=== PATIENT | male | born 1955 | race African-American/Black ===

== ENCOUNTER 2018-11-30 13:20 | Inpatient (IN) ==
[2018-11-30] MEDS ORDERED: SODIUM CHLORIDE 0.9% 1,000 ML IV STA (13:32)
[2018-11-30] MEDS ORDERED: LORazepam 2 MG/1 ML VIAL IV STA ×2 (13:32→15:21)
[2018-11-30 14:07] LABS: Basophils % 0.3 % (0.0-0.8); Eosinophils % 0.1 % (0.00-10.9); Hematocrit 47.4 VOL% (42.0-52.0); Hemoglobin 14.8 GM/DL (14.0-18.0); Immature Granulocytes % 0.6 %; Immature Granulocytes Absolute 0.08 #; Lymphocytes # 1.3 10*3/uL (1.4-4.0); Lymphocytes % 9.8 % (21.2-54.2); Mean Corpuscular HGB Conc 31.2 GM/DL (32-36); Mean Corpuscular Volume 91.7 FL (87-102); Mean Platelet Volume 11.1 FL (9.6-12.0); Monocytes % 5.2 % (1.7-12.7); Platelet Count 270 T/CUMM (130-400); Red Blood Count 5.17 MC/CUMM (3.8-5.5); Red Cell Distribution Width 14.5 % (9.3-17.3); White Blood Count 13.7 T/CUMM (4-12)
[2018-11-30 14:22] LABS: INR 1.2; PT Patient Result 13.2 SECS
[2018-11-30 14:23] LABS: Amorphous Crystals,Urine Occasional /HPF (Few); Apearance,Urine Slightly Hazy (Clear); Bacteria,Urine Occasional /HPF (Few); Bilirubin,Urine Negative (Negative); Blood, Urine Moderate mg/dL (Negative); Glucose,Urine (UA) Negative (Negative); Hyaline Casts,Urine 70 /LPF (0-3); Ketones,Urine Negative (Negative); Mucus,Urine Occasional /LPF (Occasional); Nitrite,Urine Negative (Negative); Protein,Urine >=500 MG/DL; RBC,Urine 6 /HPF (0-4); Squamous Epithelial Cell,Urine Occasional /HPF (0-10); Urine Color Yellow (Yellow); Urine Specific Gravity 1.012 (1.001-1.035); Urine Urobilinogen < 2.0 EU/DL (0.2-1.0); WBC,Urine 9 /HPF (0-6)
[2018-11-30 14:31] LABS: Alanine Aminotransferase 20 U/L (16-61); Albumin 3.4 G/DL (3.4-5.0); Alkaline Phosphatase 111 U/L (45-117); Aspartate Amino Transferase 22 U/L (0-37); Blood Urea Nitrogen 13 MG/DL (7-18); Calcium 8.9 MG/DL (8.5-10.1); Glucose 108 MG/DL (74-106); Osmolality,Calculated 283.1 MOS/KG (273-304); Total Protein 7.1 G/DL (6.4-8.3)
[2018-11-30 14:32] LABS: Troponin I 0.339 NG/ML (0.00-0.045)
[2018-11-30 14:33] LABS: Barbiturates Screen,Urine Negative (Negative); Benzodiazepines Screen,Urine Negative (Negative); Cannabinoid Screen,Urine Negative (Negative); Opiate Screen,Urine Negative (Negative); Phencyclidine Screen,Urine Negative (Negative)
[2018-11-30] MEDS ORDERED: MAGNESIUM SULF RIDER 2 GM in PREMIX 1 EACH IV STA (14:36)
[2018-11-30] MEDS ORDERED: DILTIAZEM 50 MG/10 ML VIAL IV STA (14:37)
[2018-11-30] MEDS ORDERED: FUROSEMIDE 40 MG/4 ML VIAL IV STA (14:37)
[2018-11-30] MEDS ORDERED: ONDANSETRON 4 MG/2 ML VIAL IV PRN (15:08)
[2018-11-30] MEDS ORDERED: ACETAMINOPHEN 325 MG TABLET PO PRN (15:08)
[2018-11-30] MEDS ORDERED: LORazepam 2 MG/1 ML VIAL IV PRN (15:36)
[2018-11-30] MEDS ORDERED: POTASSIUM CHLORIDE RIDER 10 MEQ in PREMIX 1 EACH IV PRN (15:41)
[2018-11-30] MEDS ORDERED: levETIRAcetam 500 MG/5 ML VIAL IV ONE (15:49)
[2018-11-30 16:54] LABS: Allen Test Positive
[2018-11-30] MEDS: THIAMINE INJ 100 MG, FOLIC ACID INJ 1 MG, MULTIVITAMIN INJ 10 ML in DEXTROSE 5% NACL 0.... IV SCH (16:55)
[2018-11-30] MEDS: DEXT 5% NACL 0.45% KCL 40 MEQ 40 MEQ/1,000 ML BAG IV SCH ×2 (16:55→23:52)
[2018-11-30 16:58] LABS: ABG Base Excess -1.5 MMOL/L (-2.5-2.5); ABG HCO3 23.2 MMOL/L (20-26); ABG Oxygen Saturation 98.9 % (95-100); ABG PCO2 31.9 MM HG (35-48); ABG PH 7.439 (7.35-7.45); ABG TCO2 18.1 MMOL/L (23-27)
[2018-11-30] MEDS: ENOXAPARIN 100 MG/ML SYRINGE SUBCUT SCH (17:28)
[2018-11-30] MEDS: dilTIAZem Drip 125 MG/125 ML PREMIX IV SCH (18:23)
[2018-11-30] MEDS ORDERED: cloNIDine 0.2 MG/24 HR PATCH TRANSDERM SCH (20:00)
[2018-11-30] MEDS ORDERED: hydrALAZINE 20 MG/1 ML VIAL IV ONE (22:18)
[2018-12-01 05:00] LABS: Basophils % 0.1 % (0.0-0.8); Hematocrit 44.1 VOL% (42.0-52.0); Hemoglobin 14.6 GM/DL (14.0-18.0); Immature Granulocytes % 0.6 %; Lymphocytes % 5.5 % (21.2-54.2); Mean Corpuscular HGB Conc 33.1 GM/DL (32-36); Mean Platelet Volume 11.7 FL (9.6-12.0); Monocytes % 7.9 % (1.7-12.7); Neutrophils % 85.9 % (38.7-73.9); Platelet Count 289 T/CUMM (130-400); Red Blood Count 5.13 MC/CUMM (3.8-5.5); Red Cell Distribution Width 14.2 % (9.3-17.3); White Blood Count 17.3 T/CUMM (4-12)
[2018-12-01 05:29] LABS: Albumin 3.5 G/DL (3.4-5.0); Bilirubin,Total 1.6 MG/DL (0.2-1.0); Calcium 8.6 MG/DL (8.5-10.1); Osmolality,Calculated 276.7 MOS/KG (273-304); Total Protein 7.1 G/DL (6.4-8.3)
[2018-12-01] MEDS: ENOXAPARIN 100 MG/ML SYRINGE SUBCUT SCH ×2 (05:41→16:16)
[2018-12-01] MEDS: dilTIAZem Drip 125 MG/125 ML PREMIX IV SCH ×2 (05:43→16:15)
[2018-12-01] MEDS: DEXT 5% NACL 0.45% KCL 40 MEQ 40 MEQ/1,000 ML BAG IV SCH ×2 (05:53→20:00)
[2018-12-01] MEDS ORDERED: POTASSIUM CHLORIDE INJ 50 MEQ in SODIUM CHLORIDE 0.9% 500 ML IV ONE (06:00)
[2018-12-01] MEDS ORDERED: MAGNESIUM SULF RIDER 2 GM in PREMIX 1 EACH IV ONE (08:28)
[2018-12-01] MEDS: ATORVASTATIN 20 MG TABLET PO SCH (09:04)
[2018-12-01] MEDS: CEFTAROLINE 600 MG in SODIUM CHLORIDE 0.9% 100 ML IV SCH (12:50)
[2018-12-01] MEDS ORDERED: METOPROLOL TARTRATE 5 MG/5 ML VIAL IV ONE (12:58)
[2018-12-01] MEDS: CARVEDILOL 12.5 MG TABLET PO SCH ×2 (12:59→17:57)
[2018-12-01] MEDS ORDERED: VECURONIUM 10 MG VIAL IV ONE ×2 (13:43→13:44)
[2018-12-01] MEDS ORDERED: PROPOFOL 1,000 MG/100 ML BOTTLE IV ONE (13:43)
[2018-12-01] MEDS: PROPOFOL 1,000 MG/100 ML BOTTLE IV SCH ×2 (14:19→22:02)
[2018-12-01] MEDS ORDERED: LABETALOL 20 MG/4 ML SYRINGE IV PRN (14:25)
[2018-12-01 14:46] LABS: ABG Base Excess 0.7 MMOL/L (-2.5-2.5); ABG HCO3 24.9 MMOL/L (20-26); ABG Oxygen Saturation 94.6 % (95-100); ABG PCO2 35.8 MM HG (35-48); ABG PO2 75.6 MM HG (80-95); ABG TCO2 20.7 MMOL/L (23-27)
[2018-12-01] MEDS: THIAMINE INJ 100 MG, FOLIC ACID INJ 1 MG, MULTIVITAMIN INJ 10 ML in DEXTROSE 5% NACL 0.... IV SCH (16:25)
[2018-12-01] MEDS: LORazepam 2 MG/1 ML VIAL IV SCH (17:41)
[2018-12-02] MEDS: CEFTAROLINE 600 MG in SODIUM CHLORIDE 0.9% 100 ML IV SCH ×2 (00:09→11:41)
[2018-12-02] MEDS: CARVEDILOL 12.5 MG TABLET PO SCH ×3 (00:11→12:02)
[2018-12-02] MEDS: DEXT 5% NACL 0.45% KCL 40 MEQ 40 MEQ/1,000 ML BAG IV SCH ×2 (01:20→01:39)
[2018-12-02] MEDS: LORazepam 2 MG/1 ML VIAL IV SCH ×3 (01:37→17:25)
[2018-12-02 04:15] LABS: ABG Base Excess -2.5 MMOL/L (-2.5-2.5); ABG HCO3 22.4 MMOL/L (20-26); ABG Oxygen Saturation 98.4 % (95-100); ABG PH 7.432 (7.35-7.45); ABG TCO2 17.7 MMOL/L (23-27); Allen Test Positive; Pt O2 Delivery Device Ventilator
[2018-12-02] MEDS: ENOXAPARIN 100 MG/ML SYRINGE SUBCUT SCH ×2 (05:54→15:41)
[2018-12-02] MEDS: PROPOFOL 1,000 MG/100 ML BOTTLE IV SCH ×2 (06:07→17:17)
[2018-12-02] MEDS ORDERED: DIGOXIN 0.5 MG/2 ML AMP IV ONE ×2 (07:22→10:30)
[2018-12-02] MEDS: DEXTROSE 5% LACTATED RINGERS 1,000 ML IV SCH (08:24)
[2018-12-02] MEDS ORDERED: DEXTROSE 50% 25 GM/50 ML SYRINGE IV PRN (08:51)
[2018-12-02] MEDS ORDERED: GLUCAGON 1 MG VIAL IM PRN (08:51)
[2018-12-02] MEDS: ATORVASTATIN 20 MG TABLET PO SCH (09:36)
[2018-12-02] MEDS: INSULIN REGULAR 100 UNIT/ML SUBCUT SCH ×2 (11:57→18:32)
[2018-12-02] MEDS ORDERED: CARVEDILOL 25 MG TABLET PER TUBE SCH (14:00)
[2018-12-02] MEDS: THIAMINE INJ 100 MG, FOLIC ACID INJ 1 MG, MULTIVITAMIN INJ 10 ML in DEXTROSE 5% NACL 0.... IV SCH (17:28)
[2018-12-02] MEDS: CARVEDILOL 25 MG TABLET PER TUBE SCH (18:19)
[2018-12-03] MEDS: CEFTAROLINE 600 MG in SODIUM CHLORIDE 0.9% 100 ML IV SCH (00:13)
[2018-12-03] MEDS: INSULIN REGULAR 100 UNIT/ML SUBCUT SCH ×4 (00:50→18:13)
[2018-12-03] MEDS: LORazepam 2 MG/1 ML VIAL IV SCH ×3 (01:18→17:56)
[2018-12-03] MEDS: CARVEDILOL 25 MG TABLET PER TUBE SCH ×4 (01:20→18:18)
[2018-12-03 03:56] LABS: ABG Base Excess -2.7 MMOL/L (-2.5-2.5); ABG HCO3 20.8 MMOL/L (20-26); ABG Oxygen Saturation 97.5 % (95-100); ABG PCO2 32.4 MM HG (35-48); ABG PH 7.425 (7.35-7.45); ABG PO2 99.6 MM HG (80-95); ABG TCO2 21.8 MMOL/L (23-27); Allen Test Positive; Pt O2 Delivery Device Ventilator
[2018-12-03] MEDS: DEXTROSE 5% LACTATED RINGERS 1,000 ML IV SCH ×2 (04:20→13:25)
[2018-12-03 05:25] LABS: Basophils # 0.1 10*3/uL (0.0-0.2); Basophils % 0.2 % (0.0-0.8); Hematocrit 42.9 VOL% (42.0-52.0); Hemoglobin 13.5 GM/DL (14.0-18.0); Immature Granulocytes % 1.9 %; Immature Granulocytes Absolute 0.52 #; Lymphocytes # 1.4 10*3/uL (1.4-4.0); Mean Corpuscular HGB Conc 31.5 GM/DL (32-36); Mean Corpuscular Volume 89.4 FL (87-102); Monocytes % 8.6 % (1.7-12.7); Neutrophils % 84.3 % (38.7-73.9); Platelet Count 225 T/CUMM (130-400); Red Cell Distribution Width 14.3 % (9.3-17.3); White Blood Count 26.8 T/CUMM (4-12)
[2018-12-03] MEDS: ENOXAPARIN 100 MG/ML SYRINGE SUBCUT SCH ×2 (05:44→16:10)
[2018-12-03 05:57] LABS: Calcium 8.5 MG/DL (8.5-10.1); Prealbumin 10.9 MG/DL (20-40)
[2018-12-03 05:59] LABS: Risk Ratio 1.38
[2018-12-03 06:03] LABS: Albumin 2.1 G/DL (3.4-5.0); Calcium 8.4 MG/DL (8.5-10.1); Osmolality,Calculated 276.8 MOS/KG (273-304); Total Protein 5.6 G/DL (6.4-8.3)
[2018-12-03 06:04] LABS: Troponin I 0.151 NG/ML (0.00-0.045)
[2018-12-03 06:21] LABS: Band Neutrophils 1 % (0-10); Burr Cells Slight; Hypochromasia 1+; Lymphocytes 11 % (20-55); Ovalocytes Slight; Platelet Estimate Adequate; Segmented Neutrophils 82 % (50-85); Total Cells Counted 100
[2018-12-03] MEDS: PROPOFOL 1,000 MG/100 ML BOTTLE IV SCH (07:24)
[2018-12-03] MEDS ORDERED: LORazepam 2 MG/1 ML VIAL ONE (09:28)
[2018-12-03] MEDS: ATORVASTATIN 20 MG TABLET PO SCH (09:35)
[2018-12-03] MEDS: CEFTAROLINE 400 MG in SODIUM CHLORIDE 0.9% 100 ML IV SCH (11:06)
[2018-12-03] MEDS: DIGOXIN 0.25 MG TABLET PER TUBE SCH (13:26)
[2018-12-03] MEDS: THIAMINE INJ 100 MG, FOLIC ACID INJ 1 MG, MULTIVITAMIN INJ 10 ML in DEXTROSE 5% NACL 0.... IV SCH (17:45)
[2018-12-04] MEDS: CEFTAROLINE 400 MG in SODIUM CHLORIDE 0.9% 100 ML IV SCH ×3 (01:20→23:58)
[2018-12-04] MEDS: INSULIN REGULAR 100 UNIT/ML SUBCUT SCH ×4 (01:20→20:30)
[2018-12-04] MEDS: CARVEDILOL 25 MG TABLET PER TUBE SCH ×4 (01:31→17:50)
[2018-12-04] MEDS: LORazepam 2 MG/1 ML VIAL IV SCH ×3 (03:02→17:50)
[2018-12-04 03:17] LABS: ABG Base Excess -3.1 MMOL/L (-2.5-2.5); ABG HCO3 20.5 MMOL/L (20-26); ABG Oxygen Saturation 97.9 % (95-100); ABG PCO2 32.7 MM HG (35-48); ABG PH 7.416 (7.35-7.45); ABG PO2 110.7 MM HG (80-95); ABG TCO2 21.5 MMOL/L (23-27); Allen Test Positive; Pt O2 Delivery Device Ventilator
[2018-12-04] MEDS: PROPOFOL 1,000 MG/100 ML BOTTLE IV SCH ×2 (04:55→17:05)
[2018-12-04] MEDS: DEXTROSE 5% LACTATED RINGERS 1,000 ML IV SCH ×3 (05:12→20:36)
[2018-12-04] MEDS: ENOXAPARIN 100 MG/ML SYRINGE SUBCUT SCH ×2 (05:12→16:22)
[2018-12-04 05:22] LABS: Basophils # 0.1 10*3/uL (0.0-0.2); Basophils % 0.2 % (0.0-0.8); Hematocrit 43.2 VOL% (42.0-52.0); Hemoglobin 13.6 GM/DL (14.0-18.0); Immature Granulocytes % 0.9 %; Lymphocytes % 4.2 % (21.2-54.2); Mean Corpuscular HGB Conc 31.5 GM/DL (32-36); Mean Corpuscular Volume 89.3 FL (87-102); Mean Platelet Volume 10.9 FL (9.6-12.0); Monocytes % 9.8 % (1.7-12.7); Neutrophils % 84.9 % (38.7-73.9); Platelet Count 225 T/CUMM (130-400); Red Blood Count 4.84 MC/CUMM (3.8-5.5); Red Cell Distribution Width 14.3 % (9.3-17.3); White Blood Count 22.5 T/CUMM (4-12)
[2018-12-04 05:55] LABS: Bilirubin,Total 1.8 MG/DL (0.2-1.0); Calcium 8.6 MG/DL (8.5-10.1); Total Protein 5.8 G/DL (6.4-8.3)
[2018-12-04 06:20] LABS: Hypochromasia Slight; Lymphocytes 6 % (20-55); Ovalocytes Slight; Platelet Estimate Adequate; Segmented Neutrophils 88 % (50-85); Total Cells Counted 100
[2018-12-04 06:21] LABS: Burr Cells Slight
[2018-12-04] MEDS ORDERED: LACTULOSE 20 GM/30 ML UDCUP PER TUBE SCH (09:00)
[2018-12-04] MEDS: ATORVASTATIN 20 MG TABLET PO SCH (09:32)
[2018-12-04] MEDS: DIGOXIN 0.25 MG TABLET PER TUBE SCH (14:41)
[2018-12-04] MEDS: THIAMINE INJ 100 MG, FOLIC ACID INJ 1 MG, MULTIVITAMIN INJ 10 ML in DEXTROSE 5% NACL 0.... IV SCH (16:22)
[2018-12-04] MEDS ORDERED: VALPROIC ACID INJ 1,000 MG in SODIUM CHLORIDE 0.9% 100 ML IV ONE (18:00)
[2018-12-05] MEDS: CARVEDILOL 25 MG TABLET PER TUBE SCH ×4 (00:01→18:13)
[2018-12-05] MEDS: INSULIN REGULAR 100 UNIT/ML SUBCUT SCH ×4 (00:14→17:37)
[2018-12-05] MEDS ORDERED: LORazepam 2 MG/1 ML VIAL ONE (00:54)
[2018-12-05] MEDS: LORazepam 2 MG/1 ML VIAL IV SCH ×3 (00:59→18:13)
[2018-12-05] MEDS: VALPROIC ACID INJ 500 MG in SODIUM CHLORIDE 0.9% 100 ML IV SCH ×3 (02:37→18:14)
[2018-12-05 04:28] LABS: ABG Base Excess -3.1 MMOL/L (-2.5-2.5); ABG HCO3 21.9 MMOL/L (20-26); ABG Oxygen Saturation 98.3 % (95-100); ABG PCO2 36.3 MM HG (35-48); ABG TCO2 18.7 MMOL/L (23-27); Allen Test Positive; Pt O2 Delivery Device Ventilator
[2018-12-05] MEDS: ENOXAPARIN 100 MG/ML SYRINGE SUBCUT SCH ×2 (04:48→15:56)
[2018-12-05 04:55] LABS: Basophils # 0.1 10*3/uL (0.0-0.2); Basophils % 0.3 % (0.0-0.8); Hematocrit 41.1 VOL% (42.0-52.0); Hemoglobin 12.8 GM/DL (14.0-18.0); Immature Granulocytes % 0.8 %; Lymphocytes # 1.1 10*3/uL (1.4-4.0); Lymphocytes % 4.8 % (21.2-54.2); Mean Corpuscular HGB Conc 31.1 GM/DL (32-36); Mean Corpuscular Volume 89.3 FL (87-102); Mean Platelet Volume 11.3 FL (9.6-12.0); Monocytes % 10.8 % (1.7-12.7); NRBC # 0.02 10*3/uL; Neutrophils % 83.3 % (38.7-73.9); Platelet Count 227 T/CUMM (130-400); Red Cell Distribution Width 14.3 % (9.3-17.3); White Blood Count 23.7 T/CUMM (4-12)
[2018-12-05 05:25] LABS: Calcium 8.6 MG/DL (8.5-10.1); Osmolality,Calculated 283.7 MOS/KG (273-304)
[2018-12-05 05:29] LABS: Albumin 1.8 G/DL (3.4-5.0); Bilirubin,Total 1.3 MG/DL (0.2-1.0); Calcium 8.3 MG/DL (8.5-10.1); Osmolality,Calculated 281.8 MOS/KG (273-304); Prealbumin 6.3 MG/DL (20-40); Total Protein 5.8 G/DL (6.4-8.3)
[2018-12-05 05:50] LABS: Lymphocytes 6 % (20-55); Segmented Neutrophils 85 % (50-85); Total Cells Counted 100
[2018-12-05 05:51] LABS: Anisocytosis Slight; Microcytosis 1+
[2018-12-05 05:52] LABS: Platelet Estimate Normal
[2018-12-05] MEDS: DEXTROSE 5% LACTATED RINGERS 1,000 ML IV SCH ×2 (06:39→16:29)
[2018-12-05] MEDS ORDERED: ASPIRIN 300 MG SUPP RECTAL SCH (09:00)
[2018-12-05] MEDS: ASPIRIN CHEW 81 MG TABLET PO SCH (09:25)
[2018-12-05] MEDS: ATORVASTATIN 20 MG TABLET PO SCH (09:25)
[2018-12-05] MEDS: CEFTAROLINE 400 MG in SODIUM CHLORIDE 0.9% 100 ML IV SCH ×2 (11:32→22:28)
[2018-12-05] MEDS: DIGOXIN 0.25 MG TABLET PER TUBE SCH (13:35)
[2018-12-05] MEDS: ALBUTEROL/IPRATROPIUM 3 ML NEB RESP TX SCH ×2 (14:00→19:10)
[2018-12-05] MEDS: dilTIAZem Drip 125 MG/125 ML PREMIX IV SCH (15:55)
[2018-12-05] MEDS: PROPOFOL 1,000 MG/100 ML BOTTLE IV SCH (16:24)
[2018-12-05] MEDS: THIAMINE INJ 100 MG, FOLIC ACID INJ 1 MG, MULTIVITAMIN INJ 10 ML in DEXTROSE 5% NACL 0.... IV SCH (16:27)
[2018-12-06] MEDS: INSULIN REGULAR 100 UNIT/ML SUBCUT SCH ×3 (00:22→11:06)
[2018-12-06] MEDS: CARVEDILOL 25 MG TABLET PER TUBE SCH ×2 (00:29→06:15)
[2018-12-06] MEDS: ALBUTEROL/IPRATROPIUM 3 ML NEB RESP TX SCH ×3 (01:35→13:00)
[2018-12-06] MEDS: LORazepam 2 MG/1 ML VIAL IV SCH ×2 (01:43→08:45)
[2018-12-06] MEDS: VALPROIC ACID INJ 500 MG in SODIUM CHLORIDE 0.9% 100 ML IV SCH ×2 (01:45→10:45)
[2018-12-06] MEDS: DEXTROSE 5% LACTATED RINGERS 1,000 ML IV SCH ×2 (02:51→11:00)
[2018-12-06] MEDS: ENOXAPARIN 100 MG/ML SYRINGE SUBCUT SCH (03:17)
[2018-12-06 04:31] LABS: ABG Base Excess -3.3 MMOL/L (-2.5-2.5); ABG HCO3 21.6 MMOL/L (20-26); ABG Oxygen Saturation 97.5 % (95-100); ABG PCO2 47.5 MM HG (35-48); ABG PH 7.301 (7.35-7.45); ABG TCO2 20.9 MMOL/L (23-27); Allen Test Positive; Pt O2 Delivery Device Venturi Mask
[2018-12-06 05:24] LABS: Basophils # 0.1 10*3/uL (0.0-0.2); Basophils % 0.3 % (0.0-0.8); Hematocrit 39.7 VOL% (42.0-52.0); Hemoglobin 12.3 GM/DL (14.0-18.0); Immature Granulocytes % 1.1 %; Immature Granulocytes Absolute 0.23 #; Lymphocytes % 4.7 % (21.2-54.2); Mean Corpuscular Volume 91.5 FL (87-102); Mean Platelet Volume 11.7 FL (9.6-12.0); Monocytes % 12.1 % (1.7-12.7); Neutrophils % 81.8 % (38.7-73.9); Platelet Count 213 T/CUMM (130-400); Red Blood Count 4.34 MC/CUMM (3.8-5.5); Red Cell Distribution Width 14.5 % (9.3-17.3); White Blood Count 21.6 T/CUMM (4-12)
[2018-12-06 05:42] LABS: Albumin 1.7 G/DL (3.4-5.0); Bilirubin,Total 0.6 MG/DL (0.2-1.0); Calcium 8.5 MG/DL (8.5-10.1); Osmolality,Calculated 282.7 MOS/KG (273-304); Total Protein 5.9 G/DL (6.4-8.3)
[2018-12-06 05:58] LABS: Lymphocytes 5 % (20-55); Platelet Estimate Adequate; Polychromasia Slight; Segmented Neutrophils 85 % (50-85); Total Cells Counted 100
[2018-12-06] MEDS ORDERED: LORazepam 2 MG/1 ML VIAL ONE (08:38)
[2018-12-06] MEDS: ATORVASTATIN 20 MG TABLET PO SCH (08:45)
[2018-12-06] MEDS: ASPIRIN CHEW 81 MG TABLET PO SCH (08:45)
[2018-12-06] MEDS ORDERED: DILTIAZEM 60 MG TABLET PO SCH (11:00)
[2018-12-06] MEDS: CEFTAROLINE 400 MG in SODIUM CHLORIDE 0.9% 100 ML IV SCH (11:15)
[2018-12-06] MEDS: DIGOXIN 0.25 MG TABLET PER TUBE SCH (12:20)
[2018-12-06 14:20] VITALS: BP 119/80
[2018-12-06] MEDS ORDERED: DILTIAZEM 30 MG TABLET PO SCH (17:00)
[2018-12-06] MEDS ORDERED: CARVEDILOL 25 MG TABLET PO SCH (21:00)
[2018-12-06] MEDS ORDERED: CEFTAROLINE 400 MG in SODIUM CHLORIDE 0.9% 100 ML IV SCH (23:00)
== END 2018-12-06 14:35 | DRG 208 ==
LOC: N.ED 13:20 → N.EDINP 15:09 → SUATTDRO 15:09 → N.ICU 19:35
PROVIDERS: ADMIT Hospitalist; ATTEND Internal Medicine

== ENCOUNTER 2019-02-12 12:12 | Inpatient (IN) ==
[2019-02-12 12:45] LABS: Basophils # 0.1 10*3/uL (0.0-0.2); Basophils % 0.4 % (0.0-0.8); Eosinophils % 0.2 % (0.00-10.9); Hematocrit 43.1 VOL% (42.0-52.0); Hemoglobin 13.8 GM/DL (14.0-18.0); Immature Granulocytes % 0.7 %; Immature Granulocytes Absolute 0.09 #; Lymphocytes # 2.6 10*3/uL (1.4-4.0); Lymphocytes % 18.6 % (21.2-54.2); Mean Corpuscular Volume 86.5 FL (87-102); Mean Platelet Volume 10.7 FL (9.6-12.0); Monocytes % 8.1 % (1.7-12.7); Platelet Count 323 T/CUMM (130-400); Red Blood Count 4.98 MC/CUMM (3.8-5.5); Red Cell Distribution Width 20.1 % (9.3-17.3); White Blood Count 13.8 T/CUMM (4-12)
[2019-02-12 13:05] LABS: Albumin 3.3 G/DL (3.4-5.0); Bilirubin,Total 0.9 MG/DL (0.2-1.0); Calcium 9.6 MG/DL (8.5-10.1); Osmolality,Calculated 268.1 MOS/KG (273-304); Total Protein 7.8 G/DL (6.4-8.3)
[2019-02-12 13:54] LABS: Apearance,Urine CLEAR (Clear); Bilirubin,Urine Negative (Negative); Blood, Urine Negative (Negative); Glucose,Urine (UA) Negative (Negative); Ketones,Urine 5 mg/dL (Negative); Nitrite,Urine Negative (Negative); Protein,Urine Negative; RBC,Urine 2 /HPF (0-4); Urine Color Yellow (Yellow); Urine Specific Gravity 1.017 (1.001-1.035); WBC,Urine <1 /HPF (0-6)
[2019-02-12] MEDS ORDERED: METOPROLOL TARTRATE 5 MG/5 ML VIAL IV STA (14:34)
[2019-02-12] MEDS ORDERED: ACETAMINOPHEN 325 MG TABLET PO PRN (15:37)
[2019-02-12] MEDS ORDERED: ONDANSETRON 4 MG/2 ML VIAL IV PRN (15:37)
[2019-02-12] MEDS ORDERED: FUROSEMIDE 20 MG/2 ML VIAL IV ONE (16:48)
[2019-02-12] MEDS ORDERED: MAGNESIUM SULF RIDER 2 GM in PREMIX 1 EACH IV ONE (16:48)
[2019-02-12] MEDS ORDERED: LACTULOSE 20 GM/30 ML UDCUP PO PRN (16:52)
[2019-02-12] MEDS: methylPREDNISolone SOD SUC 40 MG/1 ML VIAL IV SCH (17:33)
[2019-02-12] MEDS: SODIUM CHLORIDE 0.9% 1,000 ML IV SCH (17:34)
[2019-02-12] MEDS ORDERED: DOCUSATE SODIUM 100 MG CAPSULE PO SCH (21:00)
[2019-02-12] MEDS ORDERED: DILTIAZEM 90 MG TABLET PO SCH (22:00)
[2019-02-12] MEDS ORDERED: VALPROIC ACID 250 MG/5 ML UDCUP PO SCH (22:00)
[2019-02-12] MEDS: ATORVASTATIN 20 MG TABLET PO SCH (22:50)
[2019-02-12] MEDS: METOPROLOL TARTRATE 100 MG TABLET PO SCH (22:51)
[2019-02-12] MEDS: levETIRAcetam LIQUID 100 MG/ML 30 ML/BOTTLE PO SCH (22:52)
[2019-02-12] MEDS: DOCUSATE SODIUM 100 MG/10 ML UDCUP PO SCH (23:10)
[2019-02-13] MEDS: methylPREDNISolone SOD SUC 40 MG/1 ML VIAL IV SCH ×3 (02:17→17:06)
[2019-02-13 06:22] LABS: Basophils % 0.1 % (0.0-0.8); Hematocrit 41.4 VOL% (42.0-52.0); Hemoglobin 13.4 GM/DL (14.0-18.0); Immature Granulocytes % 0.6 %; Immature Granulocytes Absolute 0.05 #; Lymphocytes # 1.5 10*3/uL (1.4-4.0); Lymphocytes % 17.3 % (21.2-54.2); Mean Corpuscular HGB Conc 32.4 GM/DL (32-36); Mean Corpuscular Volume 85.5 FL (87-102); Mean Platelet Volume 10.9 FL (9.6-12.0); Monocytes % 1.8 % (1.7-12.7); Neutrophils % 80.2 % (38.7-73.9); Platelet Count 336 T/CUMM (130-400); Red Blood Count 4.84 MC/CUMM (3.8-5.5); Red Cell Distribution Width 19.9 % (9.3-17.3); White Blood Count 8.7 T/CUMM (4-12)
[2019-02-13 06:55] LABS: Calcium 9.8 MG/DL (8.5-10.1); Osmolality,Calculated 271.2 MOS/KG (273-304); Thyroid Stimulating Hormone 1.44 uIU/ml (0.358-3.74); Uric Acid 6.6 MG/DL (3.5-7.2)
[2019-02-13] MEDS ORDERED: FUROSEMIDE 20 MG/2 ML VIAL IV SCH (09:00)
[2019-02-13] MEDS ORDERED: AMINO ACIDS PROTEIN HYDROLYS PO SCH (09:00)
[2019-02-13] MEDS: FUROSEMIDE 40 MG/4 ML VIAL IV SCH (10:26)
[2019-02-13] MEDS: ASPIRIN EC 81 MG TABLET PO SCH (10:28)
[2019-02-13] MEDS: FOLIC ACID 1 MG TABLET PO SCH (10:28)
[2019-02-13] MEDS: VALPROIC ACID 250 MG/5 ML UDCUP PO SCH ×3 (10:28→21:24)
[2019-02-13] MEDS: THIAMINE 100 MG TABLET PO SCH (10:29)
[2019-02-13] MEDS: METOPROLOL TARTRATE 100 MG TABLET PO SCH ×2 (10:29→21:23)
[2019-02-13] MEDS: DILTIAZEM 90 MG TABLET PO SCH ×3 (10:30→21:24)
[2019-02-13] MEDS: PANTOPRAZOLE 40 MG TABLET PO SCH (10:31)
[2019-02-13] MEDS: levETIRAcetam LIQUID 100 MG/ML 30 ML/BOTTLE PO SCH ×2 (10:34→21:35)
[2019-02-13] MEDS: CLOPIDOGREL 75 MG TABLET PO SCH (10:34)
[2019-02-13] MEDS: SODIUM CHLORIDE 0.9% 1,000 ML IV SCH ×2 (10:38→16:34)
[2019-02-13] MEDS: DOCUSATE SODIUM 100 MG/10 ML UDCUP PO SCH ×2 (10:45→21:35)
[2019-02-13] MEDS: ALBUTEROL/IPRATROPIUM 3 ML NEB RESP TX SCH ×2 (13:40→19:10)
[2019-02-13] MEDS: ATORVASTATIN 20 MG TABLET PO SCH (21:36)
[2019-02-14] MEDS: ALBUTEROL/IPRATROPIUM 3 ML NEB RESP TX SCH ×3 (01:05→14:20)
[2019-02-14] MEDS: SODIUM CHLORIDE 0.9% 1,000 ML IV SCH (01:21)
[2019-02-14] MEDS: methylPREDNISolone SOD SUC 40 MG/1 ML VIAL IV SCH ×2 (02:26→09:46)
[2019-02-14 04:09] LABS: Basophils % 0.1 % (0.0-0.8); Hemoglobin 12.5 GM/DL (14.0-18.0); Immature Granulocytes % 0.9 %; Immature Granulocytes Absolute 0.15 #; Lymphocytes # 1.9 10*3/uL (1.4-4.0); Mean Corpuscular HGB Conc 32.9 GM/DL (32-36); Mean Corpuscular Volume 86.2 FL (87-102); Mean Platelet Volume 11.4 FL (9.6-12.0); Platelet Count 326 T/CUMM (130-400); Red Blood Count 4.41 MC/CUMM (3.8-5.5); Red Cell Distribution Width 19.5 % (9.3-17.3); White Blood Count 15.8 T/CUMM (4-12)
[2019-02-14 04:32] LABS: Calcium 9.2 MG/DL (8.5-10.1); Osmolality,Calculated 279.1 MOS/KG (273-304)
[2019-02-14] MEDS: FOLIC ACID 1 MG TABLET PO SCH (09:37)
[2019-02-14] MEDS: PANTOPRAZOLE 40 MG TABLET PO SCH (09:39)
[2019-02-14] MEDS: THIAMINE 100 MG TABLET PO SCH (09:39)
[2019-02-14] MEDS: CLOPIDOGREL 75 MG TABLET PO SCH (09:39)
[2019-02-14] MEDS: DILTIAZEM 90 MG TABLET PO SCH ×2 (09:40→16:06)
[2019-02-14] MEDS: DOCUSATE SODIUM 100 MG/10 ML UDCUP PO SCH (09:41)
[2019-02-14] MEDS: VALPROIC ACID 250 MG/5 ML UDCUP PO SCH ×2 (09:41→16:06)
[2019-02-14] MEDS: METOPROLOL TARTRATE 100 MG TABLET PO SCH (09:41)
[2019-02-14] MEDS: ASPIRIN EC 81 MG TABLET PO SCH (09:41)
[2019-02-14] MEDS: FUROSEMIDE 40 MG/4 ML VIAL IV SCH (09:42)
[2019-02-14] MEDS: levETIRAcetam LIQUID 100 MG/ML 30 ML/BOTTLE PO SCH (12:03)
[2019-02-14] MEDS ORDERED: LORazepam 2 MG/1 ML VIAL IV ONE ×2 (13:44)
[2019-02-14 16:50] VITALS: BP 148/96
== END 2019-02-14 18:34 | DRG 880 ==
LOC: EDUNIT# → EDBD → N.ED 12:12 → N.EDINP 14:22 → N.TELES 16:32
PROVIDERS: ADMIT Internal Medicine; ATTEND Internal Medicine

== ENCOUNTER 2019-05-07 18:37 | Inpatient (IN) ==
[2019-05-07 19:11] LABS: Basophils % 0.1 % (0.0-0.8); Eosinophils # 0.1 10*3/uL (0.0-0.87); Eosinophils % 0.3 % (0.00-10.9); Hematocrit 30.8 VOL% (42.0-52.0); Hemoglobin 9.9 GM/DL (14.0-18.0); Immature Granulocytes % 0.5 %; Immature Granulocytes Absolute 0.07 #; Lymphocytes # 2.9 10*3/uL (1.4-4.0); Lymphocytes % 19.7 % (21.2-54.2); Mean Corpuscular HGB Conc 32.1 GM/DL (32-36); Mean Corpuscular Volume 90.6 FL (87-102); Mean Platelet Volume 10.2 FL (9.6-12.0); Monocytes % 10.3 % (1.7-12.7); Neutrophils % 69.1 % (38.7-73.9); Platelet Count 339 T/CUMM (130-400); Red Cell Distribution Width 16.2 % (9.3-17.3); White Blood Count 14.9 T/CUMM (4-12)
[2019-05-07 19:30] LABS: Alanine Aminotransferase 10 U/L (16-61); Albumin 2.7 G/DL (3.4-5.0); Alkaline Phosphatase 37 U/L (45-117); Aspartate Amino Transferase < 3 U/L (0-37); Blood Urea Nitrogen 9 MG/DL (7-18); Calcium 8.7 MG/DL (8.5-10.1); Estimated Glom Filtration Rate 114 ML/MIN; Glucose 84 MG/DL (74-106)
[2019-05-07] MEDS ORDERED: ONDANSETRON 4 MG/2 ML VIAL IV PRN (20:42)
[2019-05-07] MEDS ORDERED: ACETAMINOPHEN 325 MG TABLET PO PRN (20:42)
[2019-05-07] MEDS ORDERED: LEVOFLOXACIN INJ 150 ML IV ONE (20:46)
[2019-05-07] MEDS ORDERED: LEVOFLOXACIN INJ 750 MG in PREMIX 1 EACH IV STA (20:46)
[2019-05-07] MEDS: methylPREDNISolone SOD SUC 125 MG/2 ML VIAL IV SCH (21:53)
[2019-05-07] MEDS: BENZONATATE 100 MG CAPSULE PO SCH (21:53)
[2019-05-07] MEDS: DOCUSATE SODIUM 100 MG CAPSULE PO SCH (21:53)
[2019-05-07] MEDS: SODIUM CHLORIDE 0.45% 1,000 ML IV SCH (21:57)
[2019-05-07] MEDS: ALBUTEROL/IPRATROPIUM 3 ML NEB RESP TX SCH (23:52)
[2019-05-08 01:04] LABS: Apearance,Urine CLEAR (Clear); Bilirubin,Urine Small mg/dL (Negative); Blood, Urine Negative (Negative); Glucose,Urine (UA) Negative (Negative); Hyaline Casts,Urine 1 /LPF (0-3); Ketones,Urine 5 mg/dL (Negative); Mucus,Urine Occasional /LPF (Occasional); Nitrite,Urine Negative (Negative); Protein,Urine 30 MG/DL; RBC,Urine 4 /HPF (0-4); Urine Color Amber (Yellow); Urine Specific Gravity 1.033 (1.001-1.035); WBC,Urine 4 /HPF (0-6)
[2019-05-08] MEDS: ALBUTEROL/IPRATROPIUM 3 ML NEB RESP TX SCH ×4 (03:24→14:14)
[2019-05-08] MEDS: methylPREDNISolone SOD SUC 125 MG/2 ML VIAL IV SCH ×4 (06:22→22:19)
[2019-05-08] MEDS: SODIUM CHLORIDE 0.45% 1,000 ML IV SCH ×3 (06:23→14:55)
[2019-05-08] MEDS ORDERED: POTASSIUM CHLORIDE RIDER 10 MEQ in PREMIX 1 EACH IV PRN (07:08)
[2019-05-08] MEDS ORDERED: MAGNESIUM SULF RIDER 1 GM in PREMIX 1 EACH IV ONE (07:19)
[2019-05-08] MEDS: DOCUSATE SODIUM 100 MG CAPSULE PO SCH ×2 (10:24→22:20)
[2019-05-08] MEDS: PANTOPRAZOLE 40 MG TABLET PO SCH (10:24)
[2019-05-08] MEDS: BENZONATATE 100 MG CAPSULE PO SCH ×3 (10:25→22:16)
[2019-05-08 10:31] LABS: Calcium 9.1 MG/DL (8.5-10.1)
[2019-05-08] MEDS ORDERED: LACTULOSE 20 GM/30 ML UDCUP PO PRN (14:00)
[2019-05-08] MEDS ORDERED: IBUPROFEN 400 MG TABLET PO PRN (14:00)
[2019-05-08] MEDS ORDERED: ALBUTEROL/IPRATROPIUM 3 ML NEB RESP TX PRN (14:06)
[2019-05-08] MEDS: DILTIAZEM 90 MG TABLET PO SCH ×3 (15:07→22:22)
[2019-05-08] MEDS: HydrOXYzine PAMOATE 25 MG CAPSULE PO SCH ×2 (15:07→22:19)
[2019-05-08] MEDS: LORATADINE 10 MG TABLET PO SCH (15:07)
[2019-05-08] MEDS: MAGNESIUM SULF RIDER 2 GM in PREMIX 1 EACH IV ONE ×2 (16:59→18:25)
[2019-05-08] MEDS ORDERED: DOCUSATE SODIUM 100 MG/10 ML UDCUP PO SCH (21:00)
[2019-05-08] MEDS ORDERED: DILTIAZEM 60 MG TABLET PO SCH (22:01)
[2019-05-08] MEDS: METOPROLOL TARTRATE 100 MG TABLET PO SCH (22:16)
[2019-05-08] MEDS: ATORVASTATIN 20 MG TABLET PO SCH (22:16)
[2019-05-08] MEDS: ALLOPURINOL 100 MG TABLET PO SCH (22:17)
[2019-05-08] MEDS: levETIRAcetam LIQUID 100 MG/ML 30 ML/BOTTLE PO SCH (22:20)
[2019-05-08] MEDS: LEVOFLOXACIN INJ 750 MG in PREMIX 1 EACH IV SCH (22:21)
[2019-05-08] MEDS: VALPROIC ACID 250 MG/5 ML UDCUP PO SCH (22:21)
[2019-05-09] MEDS: ALBUTEROL/IPRATROPIUM 3 ML NEB RESP TX SCH ×5 (00:13→23:25)
[2019-05-09] MEDS: SODIUM CHLORIDE 0.45% 1,000 ML IV SCH ×3 (03:11→16:01)
[2019-05-09] MEDS: VALPROIC ACID 250 MG/5 ML UDCUP PO SCH ×3 (07:04→21:03)
[2019-05-09] MEDS: methylPREDNISolone SOD SUC 125 MG/2 ML VIAL IV SCH ×3 (07:04→22:03)
[2019-05-09] MEDS ORDERED: FOLIC ACID 1 MG TABLET PO SCH (09:00)
[2019-05-09] MEDS ORDERED: AMINO ACIDS PROTEIN HYDROLYS PO SCH (09:00)
[2019-05-09] MEDS: POTASSIUM CHLORIDE 20 MEQ/15 ML UDCUP PO SCH (10:44)
[2019-05-09] MEDS: DILTIAZEM 90 MG TABLET PO SCH ×3 (10:44→21:02)
[2019-05-09] MEDS: levETIRAcetam LIQUID 100 MG/ML 30 ML/BOTTLE PO SCH ×2 (10:44→21:01)
[2019-05-09] MEDS: PANTOPRAZOLE 40 MG TABLET PO SCH (10:45)
[2019-05-09] MEDS: ALLOPURINOL 100 MG TABLET PO SCH ×2 (10:45→21:02)
[2019-05-09] MEDS: METOPROLOL TARTRATE 100 MG TABLET PO SCH ×2 (10:45→21:03)
[2019-05-09] MEDS: CLOPIDOGREL 75 MG TABLET PO SCH (10:45)
[2019-05-09] MEDS: LORATADINE 10 MG TABLET PO SCH (10:45)
[2019-05-09] MEDS: HydrOXYzine PAMOATE 25 MG CAPSULE PO SCH ×3 (10:45→21:03)
[2019-05-09] MEDS: BENZONATATE 100 MG CAPSULE PO SCH ×3 (10:45→22:01)
[2019-05-09] MEDS: THIAMINE 100 MG TABLET PO SCH (10:45)
[2019-05-09] MEDS: ASPIRIN EC 81 MG TABLET PO SCH (10:45)
[2019-05-09] MEDS: MULTIVITAMIN LIQUID (CENTRUM) 60 ML BOTTLE PO SCH (10:46)
[2019-05-09] MEDS: DOCUSATE SODIUM 100 MG CAPSULE PO SCH ×2 (10:46→21:02)
[2019-05-09] MEDS: LEVOFLOXACIN INJ 750 MG in PREMIX 1 EACH IV SCH (21:01)
[2019-05-09] MEDS: ATORVASTATIN 20 MG TABLET PO SCH (21:02)
[2019-05-09] MEDS: AMITRIPTYLINE 10 MG TABLET PO SCH (21:03)
[2019-05-10] MEDS: SODIUM CHLORIDE 0.45% 1,000 ML IV SCH (01:46)
[2019-05-10] MEDS: VALPROIC ACID 250 MG/5 ML UDCUP PO SCH ×3 (05:15→21:22)
[2019-05-10] MEDS: methylPREDNISolone SOD SUC 125 MG/2 ML VIAL IV SCH ×3 (06:05→21:47)
[2019-05-10] MEDS: ALBUTEROL/IPRATROPIUM 3 ML NEB RESP TX SCH ×2 (07:27→15:46)
[2019-05-10 09:15] LABS: Basophils % 0.1 % (0.0-0.8); Hematocrit 32.4 VOL% (42.0-52.0); Hemoglobin 10.3 GM/DL (14.0-18.0); Immature Granulocytes % 0.6 %; Immature Granulocytes Absolute 0.12 #; Lymphocytes # 1.4 10*3/uL (1.4-4.0); Lymphocytes % 6.3 % (21.2-54.2); Mean Corpuscular HGB Conc 31.8 GM/DL (32-36); Mean Platelet Volume 10.5 FL (9.6-12.0); Monocytes % 2.9 % (1.7-12.7); Neutrophils % 90.1 % (38.7-73.9); Platelet Count 340 T/CUMM (130-400); Red Blood Count 3.56 MC/CUMM (3.8-5.5); White Blood Count 21.3 T/CUMM (4-12)
[2019-05-10 09:34] LABS: Burr Cells Slight; Hypochromasia Slight; Lymphocytes 10 % (20-55); Ovalocytes Slight; Platelet Estimate Adequate; Segmented Neutrophils 89 % (50-85); Total Cells Counted 100
[2019-05-10 09:44] LABS: Calcium 9.2 MG/DL (8.5-10.1)
[2019-05-10] MEDS: POTASSIUM CHLORIDE 20 MEQ/15 ML UDCUP PO SCH (09:55)
[2019-05-10] MEDS: BENZONATATE 100 MG CAPSULE PO SCH ×3 (09:56→21:22)
[2019-05-10] MEDS: DILTIAZEM 90 MG TABLET PO SCH ×3 (09:56→21:20)
[2019-05-10] MEDS: HydrOXYzine PAMOATE 25 MG CAPSULE PO SCH ×3 (09:56→21:21)
[2019-05-10] MEDS: LORATADINE 10 MG TABLET PO SCH (09:56)
[2019-05-10] MEDS: THIAMINE 100 MG TABLET PO SCH (09:57)
[2019-05-10] MEDS: CLOPIDOGREL 75 MG TABLET PO SCH (09:57)
[2019-05-10] MEDS: ASPIRIN EC 81 MG TABLET PO SCH (09:57)
[2019-05-10] MEDS: ALLOPURINOL 100 MG TABLET PO SCH ×2 (09:57→21:21)
[2019-05-10] MEDS: levETIRAcetam LIQUID 100 MG/ML 30 ML/BOTTLE PO SCH ×2 (09:57→21:22)
[2019-05-10] MEDS: METOPROLOL TARTRATE 100 MG TABLET PO SCH ×2 (09:57→21:22)
[2019-05-10] MEDS: PANTOPRAZOLE 40 MG TABLET PO SCH (09:57)
[2019-05-10] MEDS: DOCUSATE SODIUM 100 MG CAPSULE PO SCH ×2 (09:57→21:22)
[2019-05-10] MEDS: MULTIVITAMIN LIQUID (CENTRUM) 60 ML BOTTLE PO SCH (09:59)
[2019-05-10] MEDS: LEVOFLOXACIN INJ 750 MG in PREMIX 1 EACH IV SCH (21:18)
[2019-05-10] MEDS: ATORVASTATIN 20 MG TABLET PO SCH (21:20)
[2019-05-10] MEDS: AMITRIPTYLINE 10 MG TABLET PO SCH (21:22)
[2019-05-11] MEDS: ALBUTEROL/IPRATROPIUM 3 ML NEB RESP TX SCH ×4 (00:39→22:40)
[2019-05-11] MEDS: SODIUM CHLORIDE 0.45% 1,000 ML IV SCH (02:07)
[2019-05-11] MEDS ORDERED: MAGNESIUM SULF RIDER 2 GM in PREMIX 1 EACH IV ONE (02:32)
[2019-05-11] MEDS: VALPROIC ACID 250 MG/5 ML UDCUP PO SCH ×3 (05:18→21:20)
[2019-05-11] MEDS: methylPREDNISolone SOD SUC 125 MG/2 ML VIAL IV SCH ×3 (05:50→22:21)
[2019-05-11 05:54] LABS: Basophils % 0.1 % (0.0-0.8); Hematocrit 29.7 VOL% (42.0-52.0); Hemoglobin 9.6 GM/DL (14.0-18.0); Immature Granulocytes % 1.1 %; Lymphocytes # 1.1 10*3/uL (1.4-4.0); Mean Corpuscular HGB Conc 32.3 GM/DL (32-36); Mean Corpuscular Volume 89.5 FL (87-102); Mean Platelet Volume 10.9 FL (9.6-12.0); Monocytes % 1.7 % (1.7-12.7); Neutrophils % 91.1 % (38.7-73.9); Platelet Count 319 T/CUMM (130-400); Red Blood Count 3.32 MC/CUMM (3.8-5.5); Red Cell Distribution Width 15.9 % (9.3-17.3); White Blood Count 17.6 T/CUMM (4-12)
[2019-05-11 06:16] LABS: Osmolality,Calculated 283.3 MOS/KG (273-304)
[2019-05-11 06:19] LABS: Prealbumin 25.4 MG/DL (20-40)
[2019-05-11 06:22] LABS: Band Neutrophils 1 % (0-10); Burr Cells Slight; Hypochromasia 1+; Lymphocytes 6 % (20-55); Ovalocytes Slight; Platelet Estimate Adequate; Segmented Neutrophils 92 % (50-85); Total Cells Counted 100
[2019-05-11] MEDS: levETIRAcetam LIQUID 100 MG/ML 30 ML/BOTTLE PO SCH ×2 (09:47→22:22)
[2019-05-11] MEDS: POTASSIUM CHLORIDE 20 MEQ/15 ML UDCUP PO SCH (09:47)
[2019-05-11] MEDS: DILTIAZEM 90 MG TABLET PO SCH ×3 (09:48→20:17)
[2019-05-11] MEDS: MULTIVITAMIN LIQUID (CENTRUM) 60 ML BOTTLE PO SCH (09:48)
[2019-05-11] MEDS: HydrOXYzine PAMOATE 25 MG CAPSULE PO SCH ×3 (09:51→20:17)
[2019-05-11] MEDS: THIAMINE 100 MG TABLET PO SCH (09:51)
[2019-05-11] MEDS: BENZONATATE 100 MG CAPSULE PO SCH ×3 (09:51→20:17)
[2019-05-11] MEDS: DOCUSATE SODIUM 100 MG CAPSULE PO SCH ×2 (09:51→20:17)
[2019-05-11] MEDS: ASPIRIN EC 81 MG TABLET PO SCH (09:52)
[2019-05-11] MEDS: ALLOPURINOL 100 MG TABLET PO SCH ×2 (09:52→20:17)
[2019-05-11] MEDS: LORATADINE 10 MG TABLET PO SCH (09:52)
[2019-05-11] MEDS: CLOPIDOGREL 75 MG TABLET PO SCH (09:52)
[2019-05-11] MEDS: METOPROLOL TARTRATE 100 MG TABLET PO SCH ×2 (09:52→20:17)
[2019-05-11] MEDS: PANTOPRAZOLE 40 MG TABLET PO SCH (09:53)
[2019-05-11] MEDS: AMITRIPTYLINE 10 MG TABLET PO SCH (20:17)
[2019-05-11] MEDS: ATORVASTATIN 20 MG TABLET PO SCH (20:17)
[2019-05-11] MEDS: LEVOFLOXACIN INJ 750 MG in PREMIX 1 EACH IV SCH (20:18)
[2019-05-12] MEDS: SODIUM CHLORIDE 0.45% 1,000 ML IV SCH (01:53)
[2019-05-12 05:35] LABS: Basophils % 0.1 % (0.0-0.8); Hematocrit 30.8 VOL% (42.0-52.0); Immature Granulocytes Absolute 0.18 #; Lymphocytes # 1.3 10*3/uL (1.4-4.0); Lymphocytes % 7.3 % (21.2-54.2); Mean Corpuscular HGB Conc 32.5 GM/DL (32-36); Mean Corpuscular Volume 88.8 FL (87-102); Mean Platelet Volume 10.9 FL (9.6-12.0); Monocytes % 2.4 % (1.7-12.7); Neutrophils % 89.2 % (38.7-73.9); Platelet Count 317 T/CUMM (130-400); Red Blood Count 3.47 MC/CUMM (3.8-5.5); Red Cell Distribution Width 15.7 % (9.3-17.3); White Blood Count 18.2 T/CUMM (4-12)
[2019-05-12] MEDS: VALPROIC ACID 250 MG/5 ML UDCUP PO SCH (05:38)
[2019-05-12] MEDS: methylPREDNISolone SOD SUC 125 MG/2 ML VIAL IV SCH (05:38)
[2019-05-12 06:00] LABS: Calcium 9.2 MG/DL (8.5-10.1); Osmolality,Calculated 284.1 MOS/KG (273-304)
[2019-05-12] MEDS: ALBUTEROL/IPRATROPIUM 3 ML NEB RESP TX SCH (07:30)
[2019-05-12] MEDS: DILTIAZEM 90 MG TABLET PO SCH (08:33)
[2019-05-12] MEDS: HydrOXYzine PAMOATE 25 MG CAPSULE PO SCH (08:34)
[2019-05-12] MEDS: CLOPIDOGREL 75 MG TABLET PO SCH (08:34)
[2019-05-12] MEDS: ALLOPURINOL 100 MG TABLET PO SCH (08:34)
[2019-05-12] MEDS: PANTOPRAZOLE 40 MG TABLET PO SCH (08:34)
[2019-05-12] MEDS: BENZONATATE 100 MG CAPSULE PO SCH (08:34)
[2019-05-12] MEDS: POTASSIUM CHLORIDE 20 MEQ/15 ML UDCUP PO SCH (08:35)
[2019-05-12] MEDS: ASPIRIN EC 81 MG TABLET PO SCH (08:35)
[2019-05-12] MEDS: levETIRAcetam LIQUID 100 MG/ML 30 ML/BOTTLE PO SCH (08:35)
[2019-05-12] MEDS: METOPROLOL TARTRATE 100 MG TABLET PO SCH (08:35)
[2019-05-12] MEDS: DOCUSATE SODIUM 100 MG CAPSULE PO SCH (08:35)
[2019-05-12] MEDS: LORATADINE 10 MG TABLET PO SCH (08:35)
[2019-05-12] MEDS: MULTIVITAMIN LIQUID (CENTRUM) 60 ML BOTTLE PO SCH (08:39)
[2019-05-12] MEDS: THIAMINE 100 MG TABLET PO SCH (08:39)
[2019-05-12 12:24] VITALS: BP 136/98
== END 2019-05-12 14:32 | DRG 178 ==
LOC: EDBD → EDUNIT# → N.ED 18:37 → N.EDINP 20:11 → N.5E 21:02
PROVIDERS: ADMIT Internal Medicine; ATTEND Internal Medicine

== ENCOUNTER 2019-05-21 16:22 | Inpatient (IN) ==
[2019-05-21] MEDS ORDERED: DILTIAZEM 50 MG/10 ML VIAL IV STA (16:51)
[2019-05-21 16:59] LABS: Basophils % 0.1 % (0.0-0.8); Eosinophils % 0.2 % (0.00-10.9); Hemoglobin 11.6 GM/DL (14.0-18.0); Immature Granulocytes % 0.6 %; Immature Granulocytes Absolute 0.12 #; Lymphocytes # 2.9 10*3/uL (1.4-4.0); Lymphocytes % 13.7 % (21.2-54.2); Mean Corpuscular HGB Conc 32.2 GM/DL (32-36); Mean Platelet Volume 10.4 FL (9.6-12.0); Monocytes % 7.1 % (1.7-12.7); Neutrophils % 78.3 % (38.7-73.9); Platelet Count 380 T/CUMM (130-400); Red Cell Distribution Width 16.8 % (9.3-17.3); White Blood Count 21.5 T/CUMM (4-12)
[2019-05-21] MEDS: dilTIAZem Drip 125 MG/125 ML PREMIX IV SCH (17:03)
[2019-05-21 17:25] LABS: Albumin 3.1 G/DL (3.4-5.0); Calcium 9.7 MG/DL (8.5-10.1); Total Protein 6.1 G/DL (6.4-8.3)
[2019-05-21 17:49] LABS: Band Neutrophils 2 % (0-10); Lymphocytes 10 % (20-55); Platelet Estimate Normal; Segmented Neutrophils 83 % (50-85); Total Cells Counted 100
[2019-05-21] MEDS ORDERED: ONDANSETRON 4 MG/2 ML VIAL IV PRN (17:51)
[2019-05-21 18:29] LABS: Apearance,Urine CLEAR (Clear); Bacteria,Urine Occasional /HPF (Few); Bilirubin,Urine Negative (Negative); Blood, Urine Negative (Negative); Glucose,Urine (UA) Negative (Negative); Ketones,Urine 20 mg/dL (Negative); Mucus,Urine Occasional /LPF (Occasional); Nitrite,Urine Negative (Negative); Protein,Urine Negative; RBC,Urine 2 /HPF (0-4); Squamous Epithelial Cell,Urine Occasional /HPF (0-10); Urine Color Amber (Yellow); Urine Specific Gravity 1.026 (1.001-1.035); WBC,Urine 2 /HPF (0-6)
[2019-05-21] MEDS ORDERED: cefTRIAXone 1,000 MG VIAL ONE (18:53)
[2019-05-21] MEDS ORDERED: cefTRIAXone 1,000 MG in SODIUM CHLORIDE 0.9% 100 ML IV STA (19:09)
[2019-05-21] MEDS ORDERED: LACTULOSE 20 GM/30 ML UDCUP PO PRN (20:51)
[2019-05-21] MEDS ORDERED: ALBUTEROL/IPRATROPIUM 3 ML NEB RESP TX PRN (20:51)
[2019-05-21] MEDS: ALLOPURINOL 100 MG TABLET PO SCH (21:58)
[2019-05-21] MEDS: AMITRIPTYLINE 25 MG TABLET PO SCH (21:58)
[2019-05-21] MEDS: ACETAMINOPHEN 325 MG TABLET PO PRN (21:58)
[2019-05-21] MEDS: levETIRAcetam LIQUID 100 MG/ML 30 ML/BOTTLE PO SCH (21:58)
[2019-05-21] MEDS: DOCUSATE SODIUM 100 MG CAPSULE PO SCH (21:59)
[2019-05-21] MEDS: METOPROLOL TARTRATE 25 MG TABLET PO SCH (21:59)
[2019-05-21] MEDS: ATORVASTATIN 20 MG TABLET PO SCH (21:59)
[2019-05-21] MEDS: SODIUM CHLORIDE 0.9% 1,000 ML IV SCH (22:00)
[2019-05-22] MEDS: dilTIAZem Drip 125 MG/125 ML PREMIX IV SCH ×2 (02:35→22:05)
[2019-05-22] MEDS: ACETAMINOPHEN 325 MG TABLET PO PRN (04:45)
[2019-05-22 05:44] LABS: Basophils % 0.3 % (0.0-0.8); Eosinophils # 0.1 10*3/uL (0.0-0.87); Eosinophils % 0.3 % (0.00-10.9); Hematocrit 36.6 VOL% (42.0-52.0); Hemoglobin 11.7 GM/DL (14.0-18.0); Immature Granulocytes % 0.6 %; Lymphocytes # 2.9 10*3/uL (1.4-4.0); Lymphocytes % 18.5 % (21.2-54.2); Mean Corpuscular Volume 90.6 FL (87-102); Mean Platelet Volume 10.5 FL (9.6-12.0); Monocytes % 7.8 % (1.7-12.7); Neutrophils % 72.5 % (38.7-73.9); Platelet Count 343 T/CUMM (130-400); Red Blood Count 4.04 MC/CUMM (3.8-5.5); Red Cell Distribution Width 16.7 % (9.3-17.3); White Blood Count 15.5 T/CUMM (4-12)
[2019-05-22 06:15] LABS: Calcium 9.5 MG/DL (8.5-10.1); Osmolality,Calculated 278.4 MOS/KG (273-304)
[2019-05-22 06:30] LABS: Folate 20.8 NG/ML (5.4-24.0)
[2019-05-22] MEDS ORDERED: ASPIRIN CHEW 81 MG TABLET PO SCH (09:00)
[2019-05-22] MEDS ORDERED: MAGNESIUM SULF RIDER 4 GM in PREMIX 1 EACH IV PRN (09:11)
[2019-05-22] MEDS: ALLOPURINOL 100 MG TABLET PO SCH ×2 (09:12→21:12)
[2019-05-22] MEDS: FOLIC ACID 1 MG TABLET PO SCH (09:12)
[2019-05-22] MEDS: HydrOXYzine PAMOATE 25 MG CAPSULE PO SCH ×3 (09:12→17:21)
[2019-05-22] MEDS: LORATADINE 10 MG TABLET PO SCH (09:12)
[2019-05-22] MEDS: METOPROLOL TARTRATE 25 MG TABLET PO SCH (09:12)
[2019-05-22] MEDS: DOCUSATE SODIUM 100 MG CAPSULE PO SCH ×2 (09:12→21:12)
[2019-05-22] MEDS: CLOPIDOGREL 75 MG TABLET PO SCH (09:12)
[2019-05-22] MEDS: LANSOPRAZOLE ODT 30 MG TABLET NG SCH (09:12)
[2019-05-22] MEDS: levETIRAcetam LIQUID 100 MG/ML 30 ML/BOTTLE PO SCH ×2 (09:13→21:12)
[2019-05-22] MEDS: APIXABAN 5 MG TABLET PO SCH ×2 (10:09→21:12)
[2019-05-22] MEDS: SOTALOL 80 MG TABLET PO SCH ×2 (10:09→21:12)
[2019-05-22] MEDS: SODIUM CHLORIDE 0.9% 1,000 ML IV SCH ×2 (10:10→19:30)
[2019-05-22] MEDS: MAGNESIUM SULF RIDER 2 GM in PREMIX 1 EACH IV PRN (10:10)
[2019-05-22 11:04] LABS: Apearance,Urine CLEAR (Clear); Bilirubin,Urine Negative (Negative); Blood, Urine Negative (Negative); Glucose,Urine (UA) Negative (Negative); Ketones,Urine 20 mg/dL (Negative); Mucus,Urine Few /LPF (Occasional); Nitrite,Urine Negative (Negative); Protein,Urine Negative; RBC,Urine 1 /HPF (0-4); Urine Color Amber (Yellow); Urine Specific Gravity 1.027 (1.001-1.035); Urine Urobilinogen < 2.0 EU/DL (0.2-1.0); WBC,Urine 1 /HPF (0-6)
[2019-05-22] MEDS ORDERED: FUROSEMIDE 20 MG/2 ML VIAL IV ONE (13:07)
[2019-05-22] MEDS: metroNIDAZOLE INJ 500 MG in PREMIX 1 EACH IV SCH ×2 (13:25→21:35)
[2019-05-22] MEDS: cefTRIAXone 1,000 MG in SYRINGE 1 EACH IV SCH (18:14)
[2019-05-22] MEDS: ATORVASTATIN 20 MG TABLET PO SCH (21:12)
[2019-05-22] MEDS: AMITRIPTYLINE 25 MG TABLET PO SCH (21:12)
[2019-05-23] MEDS: SODIUM CHLORIDE 0.9% 1,000 ML IV SCH ×2 (03:29→13:32)
[2019-05-23] MEDS: dilTIAZem Drip 125 MG/125 ML PREMIX IV SCH ×3 (04:36→16:51)
[2019-05-23] MEDS: metroNIDAZOLE INJ 500 MG in PREMIX 1 EACH IV SCH ×3 (06:23→22:13)
[2019-05-23] MEDS: DOCUSATE SODIUM 100 MG CAPSULE PO SCH (10:11)
[2019-05-23] MEDS: APIXABAN 5 MG TABLET PO SCH ×2 (10:45→22:01)
[2019-05-23] MEDS: ALLOPURINOL 100 MG TABLET PO SCH ×2 (10:45→21:49)
[2019-05-23] MEDS: SOTALOL 80 MG TABLET PO SCH ×2 (10:45→21:47)
[2019-05-23] MEDS: LORATADINE 10 MG TABLET PO SCH (10:45)
[2019-05-23] MEDS: CLOPIDOGREL 75 MG TABLET PO SCH (10:45)
[2019-05-23] MEDS: HydrOXYzine PAMOATE 25 MG CAPSULE PO SCH ×3 (10:45→17:35)
[2019-05-23] MEDS: levETIRAcetam LIQUID 100 MG/ML 30 ML/BOTTLE PO SCH ×2 (10:45→22:01)
[2019-05-23] MEDS: DOCUSATE SODIUM 100 MG/10 ML UDCUP PO SCH ×2 (10:45→21:49)
[2019-05-23] MEDS: LANSOPRAZOLE ODT 30 MG TABLET NG SCH (10:45)
[2019-05-23] MEDS: FOLIC ACID 1 MG TABLET PO SCH (10:45)
[2019-05-23 11:06] LABS: Basophils % 0.3 % (0.0-0.8); Eosinophils % 0.4 % (0.00-10.9); Hematocrit 35.7 VOL% (42.0-52.0); Hemoglobin 11.4 GM/DL (14.0-18.0); Immature Granulocytes % 0.6 %; Lymphocytes # 2.4 10*3/uL (1.4-4.0); Lymphocytes % 12.4 % (21.2-54.2); Mean Corpuscular HGB Conc 31.9 GM/DL (32-36); Mean Corpuscular Volume 92.5 FL (87-102); Mean Platelet Volume 10.4 FL (9.6-12.0); Monocytes % 7.4 % (1.7-12.7); Neutrophils % 78.9 % (38.7-73.9); Platelet Count 325 T/CUMM (130-400); Red Blood Count 3.86 MC/CUMM (3.8-5.5); Red Cell Distribution Width 16.3 % (9.3-17.3); White Blood Count 18.9 T/CUMM (4-12)
[2019-05-23 11:07] LABS: Basophils # 0.1 10*3/uL (0.0-0.2); Eosinophils # 0.1 10*3/uL (0.0-0.87); Immature Granulocytes Absolute 0.12 #
[2019-05-23 11:31] LABS: Calcium 9.7 MG/DL (8.5-10.1); Osmolality,Calculated 278.3 MOS/KG (273-304)
[2019-05-23] MEDS: DIVALPROEX 500 MG TABLET PO SCH ×2 (13:33→21:48)
[2019-05-23] MEDS ORDERED: TAPENTADOL 50 MG PO SCH (14:00)
[2019-05-23] MEDS: cefTRIAXone 1,000 MG in SYRINGE 1 EACH IV SCH (18:07)
[2019-05-23] MEDS: AMITRIPTYLINE 25 MG TABLET PO SCH (21:47)
[2019-05-23] MEDS: ATORVASTATIN 20 MG TABLET PO SCH (21:48)
[2019-05-24] MEDS: dilTIAZem Drip 125 MG/125 ML PREMIX IV SCH ×4 (01:57→22:20)
[2019-05-24] MEDS: SODIUM CHLORIDE 0.9% 1,000 ML IV SCH ×4 (02:05→17:50)
[2019-05-24] MEDS: metroNIDAZOLE INJ 500 MG in PREMIX 1 EACH IV SCH ×3 (05:49→21:13)
[2019-05-24] MEDS: DIVALPROEX 500 MG TABLET PO SCH ×4 (05:53→21:18)
[2019-05-24] MEDS ORDERED: predniSONE 10 MG TABLET PO SCH (09:00)
[2019-05-24] MEDS: POTASSIUM CHLORIDE 20 MEQ/15 ML UDCUP PO SCH (10:00)
[2019-05-24] MEDS: DOCUSATE SODIUM 100 MG/10 ML UDCUP PO SCH ×2 (10:00→21:00)
[2019-05-24] MEDS: HydrOXYzine PAMOATE 25 MG CAPSULE PO SCH ×3 (10:00→16:54)
[2019-05-24] MEDS: APIXABAN 5 MG TABLET PO SCH ×2 (10:01→20:59)
[2019-05-24] MEDS: SOTALOL 80 MG TABLET PO SCH ×2 (10:01→20:59)
[2019-05-24] MEDS: THIAMINE 100 MG TABLET PO SCH (10:01)
[2019-05-24] MEDS: LORATADINE 10 MG TABLET PO SCH (10:01)
[2019-05-24] MEDS: CLOPIDOGREL 75 MG TABLET PO SCH (10:01)
[2019-05-24] MEDS: FOLIC ACID 1 MG TABLET PO SCH (10:01)
[2019-05-24] MEDS: LANSOPRAZOLE ODT 30 MG TABLET NG SCH (10:02)
[2019-05-24] MEDS: ALLOPURINOL 100 MG TABLET PO SCH ×2 (10:02→20:59)
[2019-05-24] MEDS: levETIRAcetam LIQUID 100 MG/ML 30 ML/BOTTLE PO SCH ×2 (10:21→21:00)
[2019-05-24] MEDS: predniSONE 20 MG TABLET PO SCH (12:35)
[2019-05-24] MEDS: ALBUTEROL/IPRATROPIUM 3 ML NEB RESP TX SCH ×2 (13:04→20:20)
[2019-05-24] MEDS: cefTRIAXone 1,000 MG in SYRINGE 1 EACH IV SCH (18:07)
[2019-05-24] MEDS: ATORVASTATIN 20 MG TABLET PO SCH (20:59)
[2019-05-24] MEDS: AMITRIPTYLINE 25 MG TABLET PO SCH (20:59)
[2019-05-25] MEDS: ALBUTEROL/IPRATROPIUM 3 ML NEB RESP TX SCH ×4 (01:40→19:34)
[2019-05-25] MEDS: metroNIDAZOLE INJ 500 MG in PREMIX 1 EACH IV SCH ×3 (05:28→20:51)
[2019-05-25] MEDS: DIVALPROEX 500 MG TABLET PO SCH ×3 (05:29→21:12)
[2019-05-25] MEDS: SODIUM CHLORIDE 0.9% 1,000 ML IV SCH ×3 (06:09→16:37)
[2019-05-25] MEDS: APIXABAN 5 MG TABLET PO SCH ×2 (09:59→20:50)
[2019-05-25] MEDS: DOCUSATE SODIUM 100 MG/10 ML UDCUP PO SCH ×2 (09:59→21:03)
[2019-05-25] MEDS: SOTALOL 80 MG TABLET PO SCH ×2 (09:59→20:50)
[2019-05-25] MEDS: levETIRAcetam LIQUID 100 MG/ML 30 ML/BOTTLE PO SCH ×2 (09:59→20:51)
[2019-05-25] MEDS: POTASSIUM CHLORIDE 20 MEQ/15 ML UDCUP PO SCH (09:59)
[2019-05-25] MEDS: FOLIC ACID 1 MG TABLET PO SCH (10:00)
[2019-05-25] MEDS: LORATADINE 10 MG TABLET PO SCH (10:00)
[2019-05-25] MEDS: predniSONE 20 MG TABLET PO SCH (10:00)
[2019-05-25] MEDS: CLOPIDOGREL 75 MG TABLET PO SCH (10:00)
[2019-05-25] MEDS: THIAMINE 100 MG TABLET PO SCH (10:00)
[2019-05-25] MEDS: HydrOXYzine PAMOATE 25 MG CAPSULE PO SCH ×3 (10:00→16:42)
[2019-05-25] MEDS: LANSOPRAZOLE ODT 30 MG TABLET NG SCH (10:01)
[2019-05-25] MEDS: ALLOPURINOL 100 MG TABLET PO SCH ×2 (10:01→20:50)
[2019-05-25] MEDS: dilTIAZem Drip 125 MG/125 ML PREMIX IV SCH ×2 (10:19→16:37)
[2019-05-25 10:20] LABS: Basophils % 0.1 % (0.0-0.8); Hematocrit 33.6 VOL% (42.0-52.0); Immature Granulocytes % 0.5 %; Immature Granulocytes Absolute 0.07 #; Lymphocytes # 1.7 10*3/uL (1.4-4.0); Lymphocytes % 11.8 % (21.2-54.2); Mean Corpuscular HGB Conc 32.7 GM/DL (32-36); Mean Corpuscular Volume 89.8 FL (87-102); Mean Platelet Volume 10.5 FL (9.6-12.0); Monocytes % 4.4 % (1.7-12.7); Neutrophils % 83.2 % (38.7-73.9); Platelet Count 313 T/CUMM (130-400); Red Blood Count 3.74 MC/CUMM (3.8-5.5); Red Cell Distribution Width 15.9 % (9.3-17.3); White Blood Count 14.7 T/CUMM (4-12)
[2019-05-25 10:33] LABS: Calcium 9.3 MG/DL (8.5-10.1); Osmolality,Calculated 280.3 MOS/KG (273-304)
[2019-05-25] MEDS: cefTRIAXone 1,000 MG in SYRINGE 1 EACH IV SCH (18:04)
[2019-05-25] MEDS: AMITRIPTYLINE 25 MG TABLET PO SCH (20:50)
[2019-05-25] MEDS: ATORVASTATIN 20 MG TABLET PO SCH (20:50)
[2019-05-26] MEDS: ALBUTEROL/IPRATROPIUM 3 ML NEB RESP TX SCH ×4 (00:53→19:22)
[2019-05-26] MEDS: DIVALPROEX 500 MG TABLET PO SCH ×3 (05:13→23:07)
[2019-05-26] MEDS: metroNIDAZOLE INJ 500 MG in PREMIX 1 EACH IV SCH ×3 (05:14→20:55)
[2019-05-26] MEDS: dilTIAZem Drip 125 MG/125 ML PREMIX IV SCH (06:14)
[2019-05-26 07:33] LABS: Calcium 9.6 MG/DL (8.5-10.1); Osmolality,Calculated 279.3 MOS/KG (273-304); Prealbumin 16.4 MG/DL (20-40)
[2019-05-26] MEDS ORDERED: predniSONE 10 MG TABLET ONE (11:31)
[2019-05-26] MEDS: POTASSIUM CHLORIDE 20 MEQ/15 ML UDCUP PO SCH (11:47)
[2019-05-26] MEDS: ALLOPURINOL 100 MG TABLET PO SCH ×2 (11:48→20:55)
[2019-05-26] MEDS: LANSOPRAZOLE ODT 30 MG TABLET NG SCH (11:48)
[2019-05-26] MEDS: HydrOXYzine PAMOATE 25 MG CAPSULE PO SCH ×3 (11:48→18:20)
[2019-05-26] MEDS: FOLIC ACID 1 MG TABLET PO SCH (11:49)
[2019-05-26] MEDS: THIAMINE 100 MG TABLET PO SCH (11:49)
[2019-05-26] MEDS: predniSONE 20 MG TABLET PO SCH (11:49)
[2019-05-26] MEDS: CLOPIDOGREL 75 MG TABLET PO SCH (11:49)
[2019-05-26] MEDS: LORATADINE 10 MG TABLET PO SCH (11:49)
[2019-05-26] MEDS: SOTALOL 80 MG TABLET PO SCH ×2 (11:50→20:55)
[2019-05-26] MEDS: APIXABAN 5 MG TABLET PO SCH ×2 (11:50→20:54)
[2019-05-26] MEDS: levETIRAcetam LIQUID 100 MG/ML 30 ML/BOTTLE PO SCH ×2 (11:50→20:56)
[2019-05-26] MEDS: DOCUSATE SODIUM 100 MG/10 ML UDCUP PO SCH ×2 (11:52→20:54)
[2019-05-26] MEDS ORDERED: FUROSEMIDE 40 MG/4 ML VIAL IV ONE (14:06)
[2019-05-26] MEDS ORDERED: POTASSIUM CHLORIDE 20 MEQ/15 ML UDCUP PO ONE (14:12)
[2019-05-26] MEDS ORDERED: MAGNESIUM SULF RIDER 2 GM in PREMIX 1 EACH IV ONE (14:12)
[2019-05-26 14:16] LABS: Troponin I 0.076 NG/ML (0.00-0.045)
[2019-05-26] MEDS: GABAPENTIN 100 MG CAPSULE PO SCH ×2 (16:13→20:55)
[2019-05-26] MEDS: SODIUM CHLORIDE 0.9% 1,000 ML IV SCH (16:26)
[2019-05-26] MEDS ORDERED: DILTIAZEM 30 MG TABLET PO SCH (17:00)
[2019-05-26] MEDS: SERTRALINE 25 MG TABLET PO SCH ×2 (18:20→20:55)
[2019-05-26] MEDS: cefTRIAXone 1,000 MG in SYRINGE 1 EACH IV SCH (18:20)
[2019-05-26] MEDS: BUDESONIDE 0.25 MG/2 ML NEB RESP TX SCH (19:22)
[2019-05-26] MEDS: AMITRIPTYLINE 25 MG TABLET PO SCH (20:54)
[2019-05-26] MEDS: ATORVASTATIN 20 MG TABLET PO SCH (20:54)
[2019-05-26] MEDS: DILTIAZEM 90 MG TABLET PO SCH (23:07)
[2019-05-27] MEDS: metroNIDAZOLE INJ 500 MG in PREMIX 1 EACH IV SCH ×3 (05:32→21:25)
[2019-05-27 06:42] LABS: Calcium 9.6 MG/DL (8.5-10.1); Osmolality,Calculated 275.7 MOS/KG (273-304)
[2019-05-27] MEDS: dilTIAZem Drip 125 MG/125 ML PREMIX IV SCH ×2 (07:15→17:17)
[2019-05-27] MEDS: ALBUTEROL/IPRATROPIUM 3 ML NEB RESP TX SCH ×3 (07:25→19:38)
[2019-05-27] MEDS: BUDESONIDE 0.25 MG/2 ML NEB RESP TX SCH ×2 (07:26→19:38)
[2019-05-27] MEDS: POTASSIUM CHLORIDE 20 MEQ/15 ML UDCUP PO SCH (09:44)
[2019-05-27] MEDS: THIAMINE 100 MG TABLET PO SCH (09:45)
[2019-05-27] MEDS: DILTIAZEM 90 MG TABLET PO SCH ×3 (09:45→21:26)
[2019-05-27] MEDS: LANSOPRAZOLE ODT 30 MG TABLET NG SCH (09:45)
[2019-05-27] MEDS: SOTALOL 80 MG TABLET PO SCH ×2 (09:46→21:27)
[2019-05-27] MEDS: ALLOPURINOL 100 MG TABLET PO SCH ×2 (09:46→21:27)
[2019-05-27] MEDS: HydrOXYzine PAMOATE 25 MG CAPSULE PO SCH ×3 (09:46→17:56)
[2019-05-27] MEDS: APIXABAN 5 MG TABLET PO SCH ×2 (09:46→21:27)
[2019-05-27] MEDS: CLOPIDOGREL 75 MG TABLET PO SCH (09:46)
[2019-05-27] MEDS: DIVALPROEX 500 MG TABLET PO SCH ×3 (09:46→21:27)
[2019-05-27] MEDS: predniSONE 20 MG TABLET PO SCH (09:46)
[2019-05-27] MEDS: DOCUSATE SODIUM 100 MG/10 ML UDCUP PO SCH ×2 (09:46→21:26)
[2019-05-27] MEDS: FOLIC ACID 1 MG TABLET PO SCH (09:47)
[2019-05-27] MEDS: LORATADINE 10 MG TABLET PO SCH (09:47)
[2019-05-27] MEDS: levETIRAcetam LIQUID 100 MG/ML 30 ML/BOTTLE PO SCH ×2 (09:48→21:27)
[2019-05-27] MEDS: GABAPENTIN 100 MG CAPSULE PO SCH ×3 (09:48→21:27)
[2019-05-27] MEDS: MAGNESIUM SULF RIDER 2 GM in PREMIX 1 EACH IV PRN (10:17)
[2019-05-27] MEDS: cefTRIAXone 1,000 MG in SYRINGE 1 EACH IV SCH (18:00)
[2019-05-27] MEDS: SODIUM CHLORIDE 0.9% 1,000 ML IV SCH ×2 (19:03→19:04)
[2019-05-27] MEDS: SERTRALINE 25 MG TABLET PO SCH (21:26)
[2019-05-27] MEDS: ATORVASTATIN 20 MG TABLET PO SCH (21:26)
[2019-05-27] MEDS: AMITRIPTYLINE 25 MG TABLET PO SCH (21:27)
[2019-05-28] MEDS: DILTIAZEM 90 MG TABLET PO SCH ×3 (05:30→21:47)
[2019-05-28] MEDS: metroNIDAZOLE INJ 500 MG in PREMIX 1 EACH IV SCH ×3 (05:30→21:48)
[2019-05-28] MEDS: DIVALPROEX 500 MG TABLET PO SCH ×3 (05:31→21:47)
[2019-05-28] MEDS: BUDESONIDE 0.25 MG/2 ML NEB RESP TX SCH ×2 (09:10→19:20)
[2019-05-28] MEDS: ALBUTEROL/IPRATROPIUM 3 ML NEB RESP TX SCH ×3 (09:10→19:13)
[2019-05-28] MEDS: SOTALOL 80 MG TABLET PO SCH (10:09)
[2019-05-28] MEDS: APIXABAN 5 MG TABLET PO SCH ×2 (10:09→21:47)
[2019-05-28] MEDS: DOCUSATE SODIUM 100 MG/10 ML UDCUP PO SCH ×2 (10:09→21:55)
[2019-05-28] MEDS: LORATADINE 10 MG TABLET PO SCH (10:09)
[2019-05-28] MEDS: levETIRAcetam LIQUID 100 MG/ML 30 ML/BOTTLE PO SCH ×2 (10:10→21:50)
[2019-05-28] MEDS: GABAPENTIN 100 MG CAPSULE PO SCH ×3 (10:10→21:47)
[2019-05-28] MEDS: CLOPIDOGREL 75 MG TABLET PO SCH (10:10)
[2019-05-28] MEDS: POTASSIUM CHLORIDE 20 MEQ/15 ML UDCUP PO SCH (10:10)
[2019-05-28] MEDS: FOLIC ACID 1 MG TABLET PO SCH (10:10)
[2019-05-28] MEDS: predniSONE 20 MG TABLET PO SCH (10:11)
[2019-05-28] MEDS: ALLOPURINOL 100 MG TABLET PO SCH ×2 (10:11→21:47)
[2019-05-28] MEDS: HydrOXYzine PAMOATE 25 MG CAPSULE PO SCH ×3 (10:11→18:01)
[2019-05-28] MEDS: THIAMINE 100 MG TABLET PO SCH (10:11)
[2019-05-28] MEDS: LANSOPRAZOLE ODT 30 MG TABLET NG SCH (10:15)
[2019-05-28 12:24] LABS: Calcium 9.7 MG/DL (8.5-10.1)
[2019-05-28] MEDS: MAGNESIUM SULF RIDER 2 GM in PREMIX 1 EACH IV PRN (16:16)
[2019-05-28] MEDS: dilTIAZem Drip 125 MG/125 ML PREMIX IV SCH (16:35)
[2019-05-28] MEDS: cefTRIAXone 1,000 MG in SYRINGE 1 EACH IV SCH (18:02)
[2019-05-28] MEDS: SERTRALINE 25 MG TABLET PO SCH (21:47)
[2019-05-28] MEDS: ATENOLOL 25 MG TABLET PO SCH (21:47)
[2019-05-28] MEDS: ATORVASTATIN 20 MG TABLET PO SCH (21:47)
[2019-05-28] MEDS: AMITRIPTYLINE 25 MG TABLET PO SCH (21:48)
[2019-05-29] MEDS: DIVALPROEX 500 MG TABLET PO SCH ×3 (05:09→21:11)
[2019-05-29] MEDS: metroNIDAZOLE INJ 500 MG in PREMIX 1 EACH IV SCH ×3 (05:09→21:12)
[2019-05-29] MEDS: DILTIAZEM 90 MG TABLET PO SCH ×3 (05:09→21:12)
[2019-05-29] MEDS: ALBUTEROL/IPRATROPIUM 3 ML NEB RESP TX SCH ×3 (07:45→20:37)
[2019-05-29] MEDS: BUDESONIDE 0.25 MG/2 ML NEB RESP TX SCH ×2 (07:45→20:37)
[2019-05-29 07:59] LABS: Calcium 9.5 MG/DL (8.5-10.1); Osmolality,Calculated 273.8 MOS/KG (273-304)
[2019-05-29] MEDS: LORATADINE 10 MG TABLET PO SCH (08:58)
[2019-05-29] MEDS: APIXABAN 5 MG TABLET PO SCH ×2 (08:58→21:12)
[2019-05-29] MEDS: POTASSIUM CHLORIDE 20 MEQ/15 ML UDCUP PO SCH (08:59)
[2019-05-29] MEDS: CLOPIDOGREL 75 MG TABLET PO SCH (08:59)
[2019-05-29] MEDS: FOLIC ACID 1 MG TABLET PO SCH (08:59)
[2019-05-29] MEDS: levETIRAcetam LIQUID 100 MG/ML 30 ML/BOTTLE PO SCH ×2 (08:59→21:36)
[2019-05-29] MEDS: GABAPENTIN 100 MG CAPSULE PO SCH ×3 (08:59→21:12)
[2019-05-29] MEDS: ATENOLOL 25 MG TABLET PO SCH ×2 (09:00→21:11)
[2019-05-29] MEDS: predniSONE 20 MG TABLET PO SCH (09:00)
[2019-05-29] MEDS: LANSOPRAZOLE ODT 30 MG TABLET NG SCH (09:00)
[2019-05-29] MEDS: ALLOPURINOL 100 MG TABLET PO SCH ×2 (09:01→21:12)
[2019-05-29] MEDS: HydrOXYzine PAMOATE 25 MG CAPSULE PO SCH ×3 (09:01→19:18)
[2019-05-29] MEDS: THIAMINE 100 MG TABLET PO SCH (09:01)
[2019-05-29] MEDS: DOCUSATE SODIUM 100 MG/10 ML UDCUP PO SCH ×2 (09:05→21:50)
[2019-05-29] MEDS ORDERED: FUROSEMIDE 40 MG/4 ML VIAL IV ONE (18:37)
[2019-05-29] MEDS: dilTIAZem Drip 125 MG/125 ML PREMIX IV SCH (18:57)
[2019-05-29] MEDS: cefTRIAXone 1,000 MG in SYRINGE 1 EACH IV SCH (19:07)
[2019-05-29] MEDS: ATORVASTATIN 20 MG TABLET PO SCH (21:11)
[2019-05-29] MEDS: AMITRIPTYLINE 25 MG TABLET PO SCH (21:12)
[2019-05-29] MEDS: SERTRALINE 25 MG TABLET PO SCH (21:12)
[2019-05-30] MEDS: metroNIDAZOLE INJ 500 MG in PREMIX 1 EACH IV SCH ×3 (05:09→22:53)
[2019-05-30] MEDS: DIVALPROEX 500 MG TABLET PO SCH ×3 (05:09→22:54)
[2019-05-30] MEDS: DILTIAZEM 90 MG TABLET PO SCH ×3 (05:09→22:53)
[2019-05-30] MEDS: ALBUTEROL/IPRATROPIUM 3 ML NEB RESP TX SCH ×3 (07:17→19:46)
[2019-05-30] MEDS: BUDESONIDE 0.25 MG/2 ML NEB RESP TX SCH ×2 (07:17→19:46)
[2019-05-30] MEDS: levETIRAcetam LIQUID 100 MG/ML 30 ML/BOTTLE PO SCH ×2 (09:54→22:53)
[2019-05-30] MEDS: FUROSEMIDE 40 MG/4 ML VIAL IV SCH (09:54)
[2019-05-30] MEDS: POTASSIUM CHLORIDE 20 MEQ/15 ML UDCUP PO SCH (09:54)
[2019-05-30] MEDS: ALLOPURINOL 100 MG TABLET PO SCH ×2 (09:55→22:54)
[2019-05-30] MEDS: LORATADINE 10 MG TABLET PO SCH (09:55)
[2019-05-30] MEDS: DOCUSATE SODIUM 100 MG/10 ML UDCUP PO SCH ×2 (09:55→22:53)
[2019-05-30] MEDS: HydrOXYzine PAMOATE 25 MG CAPSULE PO SCH ×3 (09:55→16:38)
[2019-05-30] MEDS: FOLIC ACID 1 MG TABLET PO SCH (09:55)
[2019-05-30] MEDS: APIXABAN 5 MG TABLET PO SCH ×2 (09:55→22:55)
[2019-05-30] MEDS: LANSOPRAZOLE ODT 30 MG TABLET NG SCH (09:55)
[2019-05-30] MEDS: GABAPENTIN 100 MG CAPSULE PO SCH ×4 (09:55→22:56)
[2019-05-30] MEDS: predniSONE 20 MG TABLET PO SCH (09:56)
[2019-05-30] MEDS: THIAMINE 100 MG TABLET PO SCH (09:56)
[2019-05-30] MEDS: ATENOLOL 25 MG TABLET PO SCH ×2 (09:56→22:55)
[2019-05-30] MEDS: CLOPIDOGREL 75 MG TABLET PO SCH (09:56)
[2019-05-30] MEDS: cefTRIAXone 1,000 MG in SYRINGE 1 EACH IV SCH (18:13)
[2019-05-30] MEDS: AMITRIPTYLINE 25 MG TABLET PO SCH (22:54)
[2019-05-30] MEDS: SERTRALINE 25 MG TABLET PO SCH (22:55)
[2019-05-30] MEDS: ATORVASTATIN 20 MG TABLET PO SCH (22:56)
[2019-05-31 05:25] LABS: Basophils % 0.1 % (0.0-0.8); Eosinophils % 0.1 % (0.00-10.9); Hematocrit 36.5 VOL% (42.0-52.0); Hemoglobin 11.8 GM/DL (14.0-18.0); Immature Granulocytes % 0.6 %; Immature Granulocytes Absolute 0.11 #; Lymphocytes # 2.3 10*3/uL (1.4-4.0); Lymphocytes % 11.8 % (21.2-54.2); Mean Corpuscular HGB Conc 32.3 GM/DL (32-36); Mean Corpuscular Volume 89.5 FL (87-102); Monocytes % 6.4 % (1.7-12.7); Platelet Count 369 T/CUMM (130-400); Red Blood Count 4.08 MC/CUMM (3.8-5.5); Red Cell Distribution Width 16.5 % (9.3-17.3); White Blood Count 19.2 T/CUMM (4-12)
[2019-05-31 06:01] LABS: Albumin 2.8 G/DL (3.4-5.0); Bilirubin,Total 0.5 MG/DL (0.2-1.0); Calcium 10.2 MG/DL (8.5-10.1); Osmolality,Calculated 277.7 MOS/KG (273-304); Total Protein 6.3 G/DL (6.4-8.3)
[2019-05-31] MEDS: DILTIAZEM 90 MG TABLET PO SCH ×3 (06:24→21:18)
[2019-05-31] MEDS: metroNIDAZOLE INJ 500 MG in PREMIX 1 EACH IV SCH ×3 (06:24→21:19)
[2019-05-31] MEDS: DIVALPROEX 500 MG TABLET PO SCH ×3 (06:25→21:19)
[2019-05-31] MEDS: ALBUTEROL/IPRATROPIUM 3 ML NEB RESP TX SCH ×3 (07:38→20:04)
[2019-05-31] MEDS: BUDESONIDE 0.25 MG/2 ML NEB RESP TX SCH ×2 (07:38→20:04)
[2019-05-31] MEDS: POTASSIUM CHLORIDE 20 MEQ/15 ML UDCUP PO SCH (09:17)
[2019-05-31] MEDS: FUROSEMIDE 40 MG/4 ML VIAL IV SCH (09:17)
[2019-05-31] MEDS: THIAMINE 100 MG TABLET PO SCH (09:18)
[2019-05-31] MEDS: FOLIC ACID 1 MG TABLET PO SCH (09:18)
[2019-05-31] MEDS: predniSONE 20 MG TABLET PO SCH (09:18)
[2019-05-31] MEDS: levETIRAcetam LIQUID 100 MG/ML 30 ML/BOTTLE PO SCH ×2 (09:18→21:18)
[2019-05-31] MEDS: LORATADINE 10 MG TABLET PO SCH (09:18)
[2019-05-31] MEDS: DOCUSATE SODIUM 100 MG/10 ML UDCUP PO SCH ×2 (09:19→21:20)
[2019-05-31] MEDS: APIXABAN 5 MG TABLET PO SCH ×2 (09:19→21:18)
[2019-05-31] MEDS: METOPROLOL TARTRATE 50 MG TABLET PO SCH ×2 (09:19→21:19)
[2019-05-31] MEDS: ALLOPURINOL 100 MG TABLET PO SCH ×2 (09:19→21:19)
[2019-05-31] MEDS: HydrOXYzine PAMOATE 25 MG CAPSULE PO SCH ×3 (09:19→17:13)
[2019-05-31] MEDS: CLOPIDOGREL 75 MG TABLET PO SCH (09:19)
[2019-05-31] MEDS: GABAPENTIN 100 MG CAPSULE PO SCH ×3 (09:19→21:18)
[2019-05-31] MEDS: LANSOPRAZOLE ODT 30 MG TABLET NG SCH (09:20)
[2019-05-31] MEDS: cefTRIAXone 1,000 MG in SYRINGE 1 EACH IV SCH (18:19)
[2019-05-31] MEDS: AMITRIPTYLINE 25 MG TABLET PO SCH (21:18)
[2019-05-31] MEDS: SERTRALINE 25 MG TABLET PO SCH (21:19)
[2019-05-31] MEDS: ATORVASTATIN 20 MG TABLET PO SCH (21:19)
[2019-06-01] MEDS: DIVALPROEX 500 MG TABLET PO SCH ×3 (06:05→21:00)
[2019-06-01] MEDS: DILTIAZEM 90 MG TABLET PO SCH ×3 (06:05→21:00)
[2019-06-01] MEDS: metroNIDAZOLE INJ 500 MG in PREMIX 1 EACH IV SCH ×3 (06:05→20:56)
[2019-06-01] MEDS: ALBUTEROL/IPRATROPIUM 3 ML NEB RESP TX SCH ×3 (07:27→19:18)
[2019-06-01] MEDS: BUDESONIDE 0.25 MG/2 ML NEB RESP TX SCH ×2 (07:27→19:18)
[2019-06-01] MEDS: CLOPIDOGREL 75 MG TABLET PO SCH (09:28)
[2019-06-01] MEDS: POTASSIUM CHLORIDE 20 MEQ/15 ML UDCUP PO SCH (09:28)
[2019-06-01] MEDS: FUROSEMIDE 40 MG/4 ML VIAL IV SCH (09:28)
[2019-06-01] MEDS: APIXABAN 5 MG TABLET PO SCH ×2 (09:29→20:58)
[2019-06-01] MEDS: GABAPENTIN 100 MG CAPSULE PO SCH ×3 (09:29→20:57)
[2019-06-01] MEDS: HydrOXYzine PAMOATE 25 MG CAPSULE PO SCH ×3 (09:29→17:03)
[2019-06-01] MEDS: predniSONE 20 MG TABLET PO SCH (09:29)
[2019-06-01] MEDS: LORATADINE 10 MG TABLET PO SCH (09:29)
[2019-06-01] MEDS: FOLIC ACID 1 MG TABLET PO SCH (09:30)
[2019-06-01] MEDS: LANSOPRAZOLE ODT 30 MG TABLET NG SCH (09:30)
[2019-06-01] MEDS: THIAMINE 100 MG TABLET PO SCH (09:30)
[2019-06-01] MEDS: METOPROLOL TARTRATE 50 MG TABLET PO SCH ×2 (09:30→20:57)
[2019-06-01] MEDS: ALLOPURINOL 100 MG TABLET PO SCH ×2 (09:30→20:58)
[2019-06-01] MEDS: DOCUSATE SODIUM 100 MG/10 ML UDCUP PO SCH ×2 (09:31→21:01)
[2019-06-01] MEDS: levETIRAcetam LIQUID 100 MG/ML 30 ML/BOTTLE PO SCH ×2 (10:55→20:57)
[2019-06-01] MEDS: VANCOMYCIN INJ 1,000 MG in SODIUM CHLORIDE 0.9% 250 ML IV SCH (17:04)
[2019-06-01] MEDS: cefTRIAXone 1,000 MG in SYRINGE 1 EACH IV SCH (18:08)
[2019-06-01] MEDS: SERTRALINE 25 MG TABLET PO SCH (20:57)
[2019-06-01] MEDS: AMITRIPTYLINE 25 MG TABLET PO SCH (20:58)
[2019-06-01] MEDS: ATORVASTATIN 20 MG TABLET PO SCH (20:58)
[2019-06-02] MEDS: VANCOMYCIN INJ 1,000 MG in SODIUM CHLORIDE 0.9% 250 ML IV SCH ×2 (05:13→17:07)
[2019-06-02] MEDS: metroNIDAZOLE INJ 500 MG in PREMIX 1 EACH IV SCH ×3 (06:30→21:13)
[2019-06-02] MEDS: DILTIAZEM 90 MG TABLET PO SCH ×3 (06:30→21:13)
[2019-06-02] MEDS: DIVALPROEX 500 MG TABLET PO SCH ×3 (06:30→21:14)
[2019-06-02] MEDS: BUDESONIDE 0.25 MG/2 ML NEB RESP TX SCH ×2 (07:47→20:15)
[2019-06-02] MEDS: ALBUTEROL/IPRATROPIUM 3 ML NEB RESP TX SCH ×3 (07:47→20:15)
[2019-06-02 07:59] LABS: Calcium 9.6 MG/DL (8.5-10.1); Osmolality,Calculated 276.8 MOS/KG (273-304); Prealbumin 34.7 MG/DL (20-40)
[2019-06-02] MEDS: POTASSIUM CHLORIDE 20 MEQ/15 ML UDCUP PO SCH (09:19)
[2019-06-02] MEDS: FOLIC ACID 1 MG TABLET PO SCH (09:19)
[2019-06-02] MEDS: HydrOXYzine PAMOATE 25 MG CAPSULE PO SCH ×3 (09:19→17:07)
[2019-06-02] MEDS: DOCUSATE SODIUM 100 MG/10 ML UDCUP PO SCH ×2 (09:19→21:16)
[2019-06-02] MEDS: LORATADINE 10 MG TABLET PO SCH (09:19)
[2019-06-02] MEDS: LANSOPRAZOLE ODT 30 MG TABLET NG SCH (09:19)
[2019-06-02] MEDS: GABAPENTIN 100 MG CAPSULE PO SCH ×3 (09:20→21:14)
[2019-06-02] MEDS: METOPROLOL TARTRATE 50 MG TABLET PO SCH ×2 (09:20→21:15)
[2019-06-02] MEDS: THIAMINE 100 MG TABLET PO SCH (09:20)
[2019-06-02] MEDS: predniSONE 20 MG TABLET PO SCH (09:20)
[2019-06-02] MEDS: ALLOPURINOL 100 MG TABLET PO SCH ×2 (09:20→21:15)
[2019-06-02] MEDS: APIXABAN 5 MG TABLET PO SCH ×2 (09:21→21:14)
[2019-06-02] MEDS: FUROSEMIDE 40 MG/4 ML VIAL IV SCH (09:22)
[2019-06-02] MEDS: CLOPIDOGREL 75 MG TABLET PO SCH (09:22)
[2019-06-02] MEDS: levETIRAcetam LIQUID 100 MG/ML 30 ML/BOTTLE PO SCH ×2 (09:22→21:17)
[2019-06-02] MEDS ORDERED: SERTRALINE 25 MG TABLET PO ONE (16:07)
[2019-06-02] MEDS: cefTRIAXone 1,000 MG in SYRINGE 1 EACH IV SCH (18:47)
[2019-06-02] MEDS: AMITRIPTYLINE 25 MG TABLET PO SCH (21:14)
[2019-06-02] MEDS: ATORVASTATIN 20 MG TABLET PO SCH (21:15)
[2019-06-02] MEDS: SERTRALINE 25 MG TABLET PO SCH (21:15)
[2019-06-03] MEDS: VANCOMYCIN INJ 1,000 MG in SODIUM CHLORIDE 0.9% 250 ML IV SCH ×2 (05:23→17:40)
[2019-06-03] MEDS: DILTIAZEM 90 MG TABLET PO SCH ×3 (05:23→21:27)
[2019-06-03] MEDS: DIVALPROEX 500 MG TABLET PO SCH ×3 (05:23→21:26)
[2019-06-03 05:34] LABS: Basophils # 0.1 10*3/uL (0.0-0.2); Basophils % 0.3 % (0.0-0.8); Hematocrit 36.9 VOL% (42.0-52.0); Hemoglobin 11.8 GM/DL (14.0-18.0); Immature Granulocytes % 1.3 %; Immature Granulocytes Absolute 0.25 #; Lymphocytes # 2.4 10*3/uL (1.4-4.0); Lymphocytes % 12.1 % (21.2-54.2); Mean Corpuscular Volume 90.4 FL (87-102); Mean Platelet Volume 12.2 FL (9.6-12.0); Neutrophils % 78.3 % (38.7-73.9); Platelet Count 397 T/CUMM (130-400); Red Blood Count 4.08 MC/CUMM (3.8-5.5); Red Cell Distribution Width 16.3 % (9.3-17.3); White Blood Count 19.6 T/CUMM (4-12)
[2019-06-03] MEDS: metroNIDAZOLE INJ 500 MG in PREMIX 1 EACH IV SCH ×3 (06:19→21:26)
[2019-06-03] MEDS: BUDESONIDE 0.25 MG/2 ML NEB RESP TX SCH ×2 (07:30→19:52)
[2019-06-03] MEDS: ALBUTEROL/IPRATROPIUM 3 ML NEB RESP TX SCH ×3 (07:30→19:52)
[2019-06-03] MEDS: FUROSEMIDE 40 MG/4 ML VIAL IV SCH (09:41)
[2019-06-03] MEDS: predniSONE 20 MG TABLET PO SCH (09:42)
[2019-06-03] MEDS: HydrOXYzine PAMOATE 25 MG CAPSULE PO SCH ×3 (09:42→17:34)
[2019-06-03] MEDS: POTASSIUM CHLORIDE 20 MEQ/15 ML UDCUP PO SCH (09:42)
[2019-06-03] MEDS: THIAMINE 100 MG TABLET PO SCH (09:42)
[2019-06-03] MEDS: FOLIC ACID 1 MG TABLET PO SCH (09:42)
[2019-06-03] MEDS: APIXABAN 5 MG TABLET PO SCH ×2 (09:43→21:27)
[2019-06-03] MEDS: LANSOPRAZOLE ODT 30 MG TABLET NG SCH (09:43)
[2019-06-03] MEDS: METOPROLOL TARTRATE 50 MG TABLET PO SCH (09:43)
[2019-06-03] MEDS: levETIRAcetam LIQUID 100 MG/ML 30 ML/BOTTLE PO SCH ×2 (09:43→21:39)
[2019-06-03] MEDS: GABAPENTIN 100 MG CAPSULE PO SCH ×3 (09:43→21:27)
[2019-06-03] MEDS: ALLOPURINOL 100 MG TABLET PO SCH ×2 (09:43→21:27)
[2019-06-03] MEDS: LORATADINE 10 MG TABLET PO SCH (09:43)
[2019-06-03] MEDS: DOCUSATE SODIUM 100 MG/10 ML UDCUP PO SCH ×2 (09:43→21:28)
[2019-06-03] MEDS: CLOPIDOGREL 75 MG TABLET PO SCH (09:43)
[2019-06-03] MEDS: cefTRIAXone 1,000 MG in SYRINGE 1 EACH IV SCH ×2 (17:34→21:25)
[2019-06-03] MEDS: BISOPROLOL 5 MG TABLET PO SCH (21:26)
[2019-06-03] MEDS: SERTRALINE 25 MG TABLET PO SCH (21:26)
[2019-06-03] MEDS: ATORVASTATIN 20 MG TABLET PO SCH (21:27)
[2019-06-03] MEDS: AMITRIPTYLINE 25 MG TABLET PO SCH (21:27)
[2019-06-04] MEDS: VANCOMYCIN INJ 1,000 MG in SODIUM CHLORIDE 0.9% 250 ML IV SCH ×2 (04:27→17:18)
[2019-06-04] MEDS: metroNIDAZOLE INJ 500 MG in PREMIX 1 EACH IV SCH ×3 (05:40→22:14)
[2019-06-04] MEDS: DILTIAZEM 90 MG TABLET PO SCH ×3 (05:40→22:15)
[2019-06-04] MEDS: DIVALPROEX 500 MG TABLET PO SCH ×3 (05:40→22:15)
[2019-06-04 07:34] LABS: Basophils # 0.1 10*3/uL (0.0-0.2); Basophils % 0.2 % (0.0-0.8); Hematocrit 39.5 VOL% (42.0-52.0); Hemoglobin 12.7 GM/DL (14.0-18.0); Immature Granulocytes % 1.1 %; Immature Granulocytes Absolute 0.27 #; Lymphocytes # 3.4 10*3/uL (1.4-4.0); Lymphocytes % 13.9 % (21.2-54.2); Mean Corpuscular HGB Conc 32.2 GM/DL (32-36); Mean Corpuscular Volume 91.4 FL (87-102); Mean Platelet Volume 11.8 FL (9.6-12.0); Monocytes % 10.8 % (1.7-12.7); Platelet Count 439 T/CUMM (130-400); Red Blood Count 4.32 MC/CUMM (3.8-5.5); Red Cell Distribution Width 16.4 % (9.3-17.3); White Blood Count 24.1 T/CUMM (4-12)
[2019-06-04] MEDS: BUDESONIDE 0.25 MG/2 ML NEB RESP TX SCH ×2 (07:36→20:45)
[2019-06-04] MEDS: ALBUTEROL/IPRATROPIUM 3 ML NEB RESP TX SCH ×3 (07:36→20:45)
[2019-06-04 07:43] LABS: Calcium 9.8 MG/DL (8.5-10.1)
[2019-06-04 07:54] LABS: Anisocytosis 2+; Band Neutrophils 13 % (0-10); Lymphocytes 11 % (20-55); Platelet Estimate Normal; Segmented Neutrophils 64 % (50-85); Total Cells Counted 100
[2019-06-04 07:55] LABS: Burr Cells 1+; Macrocytosis Slight; Poikilocytosis 2+
[2019-06-04] MEDS: HydrOXYzine PAMOATE 25 MG CAPSULE PO SCH ×3 (08:48→17:18)
[2019-06-04] MEDS: DOCUSATE SODIUM 100 MG/10 ML UDCUP PO SCH ×2 (08:48→22:17)
[2019-06-04] MEDS: APIXABAN 5 MG TABLET PO SCH ×2 (08:49→22:17)
[2019-06-04] MEDS: GABAPENTIN 100 MG CAPSULE PO SCH ×3 (08:49→22:16)
[2019-06-04] MEDS: FUROSEMIDE 40 MG/4 ML VIAL IV SCH (08:49)
[2019-06-04] MEDS: predniSONE 20 MG TABLET PO SCH (08:49)
[2019-06-04] MEDS: POTASSIUM CHLORIDE 20 MEQ/15 ML UDCUP PO SCH (08:49)
[2019-06-04] MEDS: ALLOPURINOL 100 MG TABLET PO SCH ×2 (08:49→22:17)
[2019-06-04] MEDS: CLOPIDOGREL 75 MG TABLET PO SCH (08:49)
[2019-06-04] MEDS: LANSOPRAZOLE ODT 30 MG TABLET NG SCH (08:49)
[2019-06-04] MEDS: FOLIC ACID 1 MG TABLET PO SCH (08:50)
[2019-06-04] MEDS: LORATADINE 10 MG TABLET PO SCH (08:50)
[2019-06-04] MEDS: levETIRAcetam LIQUID 100 MG/ML 30 ML/BOTTLE PO SCH ×2 (08:50→22:20)
[2019-06-04] MEDS: BISOPROLOL 5 MG TABLET PO SCH ×2 (08:50→22:15)
[2019-06-04] MEDS: THIAMINE 100 MG TABLET PO SCH (08:50)
[2019-06-04] MEDS: traMADol 50 MG TABLET PO SCH ×2 (15:32→20:00)
[2019-06-04] MEDS ORDERED: BISOPROLOL 5 MG TABLET PO ONE (16:10)
[2019-06-04] MEDS: cefTRIAXone 1,000 MG in SYRINGE 1 EACH IV SCH (18:03)
[2019-06-04] MEDS: SERTRALINE 25 MG TABLET PO SCH (22:17)
[2019-06-04] MEDS: ATORVASTATIN 20 MG TABLET PO SCH (22:17)
[2019-06-04] MEDS: AMITRIPTYLINE 25 MG TABLET PO SCH (22:17)
[2019-06-05] MEDS: methylPREDNISolone SOD SUC 40 MG/1 ML VIAL IV SCH ×3 (03:48→18:08)
[2019-06-05] MEDS: FLUCONAZOLE INJ 100 MG in IV BAG 1 EACH IV SCH (03:54)
[2019-06-05] MEDS: VANCOMYCIN INJ 1,000 MG in SODIUM CHLORIDE 0.9% 250 ML IV SCH ×2 (04:51→18:00)
[2019-06-05] MEDS: DILTIAZEM 90 MG TABLET PO SCH ×3 (05:00→21:04)
[2019-06-05] MEDS: DIVALPROEX 500 MG TABLET PO SCH ×3 (05:00→21:05)
[2019-06-05 05:26] LABS: Basophils % 0.2 % (0.0-0.8); Hematocrit 35.1 VOL% (42.0-52.0); Hemoglobin 11.3 GM/DL (14.0-18.0); Immature Granulocytes % 1.5 %; Immature Granulocytes Absolute 0.31 #; Lymphocytes % 14.3 % (21.2-54.2); Mean Corpuscular HGB Conc 32.2 GM/DL (32-36); Mean Corpuscular Volume 90.2 FL (87-102); Mean Platelet Volume 12.2 FL (9.6-12.0); Monocytes % 8.2 % (1.7-12.7); Neutrophils % 75.8 % (38.7-73.9); Platelet Count 445 T/CUMM (130-400); Red Blood Count 3.89 MC/CUMM (3.8-5.5); Red Cell Distribution Width 16.4 % (9.3-17.3); White Blood Count 20.8 T/CUMM (4-12)
[2019-06-05] MEDS: metroNIDAZOLE INJ 500 MG in PREMIX 1 EACH IV SCH (05:49)
[2019-06-05 05:55] LABS: Lymphocytes 16 % (20-55); Segmented Neutrophils 75 % (50-85); Total Cells Counted 100
[2019-06-05 05:56] LABS: Acanthocytes Few; Atypical Lymphocytes Few; Hypochromasia 1+; Microcytosis 1+; Target Cells Slight
[2019-06-05 05:57] LABS: Osmolality,Calculated 271.4 MOS/KG (273-304); Platelet Estimate Increased; Prealbumin 32.5 MG/DL (20-40)
[2019-06-05] MEDS: BUDESONIDE 0.25 MG/2 ML NEB RESP TX SCH ×2 (08:21→19:52)
[2019-06-05] MEDS: ALBUTEROL/IPRATROPIUM 3 ML NEB RESP TX SCH ×3 (08:21→19:52)
[2019-06-05] MEDS: DOCUSATE SODIUM 100 MG/10 ML UDCUP PO SCH ×2 (10:52→21:03)
[2019-06-05] MEDS: levETIRAcetam LIQUID 100 MG/ML 30 ML/BOTTLE PO SCH ×2 (10:52→21:04)
[2019-06-05] MEDS: BISOPROLOL 5 MG TABLET PO SCH ×2 (10:52→21:04)
[2019-06-05] MEDS: FOLIC ACID 1 MG TABLET PO SCH (10:52)
[2019-06-05] MEDS: ALLOPURINOL 100 MG TABLET PO SCH ×2 (10:52→21:04)
[2019-06-05] MEDS: HydrOXYzine PAMOATE 25 MG CAPSULE PO SCH ×3 (10:52→18:00)
[2019-06-05] MEDS: LORATADINE 10 MG TABLET PO SCH (10:52)
[2019-06-05] MEDS: GABAPENTIN 100 MG CAPSULE PO SCH ×3 (10:52→21:05)
[2019-06-05] MEDS: THIAMINE 100 MG TABLET PO SCH (10:53)
[2019-06-05] MEDS: POTASSIUM CHLORIDE 20 MEQ/15 ML UDCUP PO SCH (10:53)
[2019-06-05] MEDS: APIXABAN 5 MG TABLET PO SCH ×2 (10:53→21:03)
[2019-06-05] MEDS: traMADol 50 MG TABLET PO SCH ×3 (10:53→21:03)
[2019-06-05] MEDS: LANSOPRAZOLE ODT 30 MG TABLET NG SCH (10:53)
[2019-06-05] MEDS: FUROSEMIDE 40 MG/4 ML VIAL IV SCH (13:45)
[2019-06-05] MEDS: ATORVASTATIN 20 MG TABLET PO SCH (21:03)
[2019-06-05] MEDS: AMITRIPTYLINE 25 MG TABLET PO SCH (21:04)
[2019-06-05] MEDS: SERTRALINE 25 MG TABLET PO SCH (21:04)
[2019-06-05] MEDS: QUEtiapine 25 MG TABLET PEG SCH (21:07)
[2019-06-06] MEDS: methylPREDNISolone SOD SUC 40 MG/1 ML VIAL IV SCH ×3 (03:03→18:47)
[2019-06-06] MEDS: FLUCONAZOLE INJ 100 MG in IV BAG 1 EACH IV SCH (03:05)
[2019-06-06] MEDS: DILTIAZEM 90 MG TABLET PO SCH ×3 (05:17→21:03)
[2019-06-06] MEDS: VANCOMYCIN INJ 1,000 MG in SODIUM CHLORIDE 0.9% 250 ML IV SCH ×2 (05:17→16:58)
[2019-06-06] MEDS: DIVALPROEX 500 MG TABLET PO SCH ×3 (05:18→21:02)
[2019-06-06 07:11] LABS: Basophils % 0.2 % (0.0-0.8); Hematocrit 39.3 VOL% (42.0-52.0); Hemoglobin 12.8 GM/DL (14.0-18.0); Immature Granulocytes % 1.5 %; Immature Granulocytes Absolute 0.39 #; Lymphocytes # 1.4 10*3/uL (1.4-4.0); Lymphocytes % 5.3 % (21.2-54.2); Mean Corpuscular HGB Conc 32.6 GM/DL (32-36); Mean Corpuscular Volume 89.9 FL (87-102); Mean Platelet Volume 11.7 FL (9.6-12.0); Monocytes % 3.8 % (1.7-12.7); Neutrophils % 89.2 % (38.7-73.9); Platelet Count 479 T/CUMM (130-400); Red Blood Count 4.37 MC/CUMM (3.8-5.5); Red Cell Distribution Width 16.3 % (9.3-17.3); White Blood Count 25.7 T/CUMM (4-12)
[2019-06-06 07:29] LABS: Alanine Aminotransferase 24 U/L (16-61); Albumin 2.9 G/DL (3.4-5.0); Alkaline Phosphatase 59 U/L (45-117); Aspartate Amino Transferase 11 U/L (0-37); Bilirubin,Total < 0.39 MG/DL (0.2-1.0); Blood Urea Nitrogen 35 MG/DL (7-18); Calcium 10.2 MG/DL (8.5-10.1); Estimated Glom Filtration Rate 88 ML/MIN; Glucose 136 MG/DL (74-106); Osmolality,Calculated 279.1 MOS/KG (273-304); Total Protein 6.7 G/DL (6.4-8.3)
[2019-06-06] MEDS: ALBUTEROL/IPRATROPIUM 3 ML NEB RESP TX SCH ×3 (07:40→19:52)
[2019-06-06] MEDS: BUDESONIDE 0.25 MG/2 ML NEB RESP TX SCH ×2 (07:40→19:52)
[2019-06-06 07:46] LABS: Anisocytosis 2+; Band Neutrophils 10 % (0-10); Burr Cells Few; Lymphocytes 7 % (20-55); Platelet Estimate Normal; Poikilocytosis 1+; Segmented Neutrophils 78 % (50-85); Total Cells Counted 100
[2019-06-06] MEDS: FUROSEMIDE 40 MG/4 ML VIAL IV SCH ×2 (10:03→16:58)
[2019-06-06] MEDS: GABAPENTIN 100 MG CAPSULE PO SCH ×3 (10:04→21:03)
[2019-06-06] MEDS: POTASSIUM CHLORIDE 20 MEQ/15 ML UDCUP PO SCH (10:04)
[2019-06-06] MEDS: APIXABAN 5 MG TABLET PO SCH ×2 (10:04→21:02)
[2019-06-06] MEDS: FOLIC ACID 1 MG TABLET PO SCH (10:04)
[2019-06-06] MEDS: BISOPROLOL 5 MG TABLET PO SCH ×2 (10:04→21:02)
[2019-06-06] MEDS: ALLOPURINOL 100 MG TABLET PO SCH ×2 (10:04→21:02)
[2019-06-06] MEDS: LORATADINE 10 MG TABLET PO SCH (10:05)
[2019-06-06] MEDS: THIAMINE 100 MG TABLET PO SCH (10:05)
[2019-06-06] MEDS: traMADol 50 MG TABLET PO SCH ×3 (10:05→21:02)
[2019-06-06] MEDS: DOCUSATE SODIUM 100 MG/10 ML UDCUP PO SCH ×2 (10:07→21:03)
[2019-06-06] MEDS: levETIRAcetam LIQUID 100 MG/ML 30 ML/BOTTLE PO SCH ×2 (10:08→21:03)
[2019-06-06] MEDS: LANSOPRAZOLE ODT 30 MG TABLET NG SCH (10:08)
[2019-06-06] MEDS: HydrOXYzine PAMOATE 25 MG CAPSULE PO SCH ×3 (10:08→16:58)
[2019-06-06] MEDS: SERTRALINE 25 MG TABLET PO SCH (21:02)
[2019-06-06] MEDS: ATORVASTATIN 20 MG TABLET PO SCH (21:02)
[2019-06-06] MEDS: AMITRIPTYLINE 25 MG TABLET PO SCH (21:02)
[2019-06-06] MEDS: QUEtiapine 25 MG TABLET PEG SCH (21:02)
[2019-06-07] MEDS: methylPREDNISolone SOD SUC 40 MG/1 ML VIAL IV SCH ×3 (03:40→21:32)
[2019-06-07] MEDS: FLUCONAZOLE INJ 100 MG in IV BAG 1 EACH IV SCH (03:45)
[2019-06-07] MEDS: VANCOMYCIN INJ 1,000 MG in SODIUM CHLORIDE 0.9% 250 ML IV SCH ×2 (04:42→18:20)
[2019-06-07] MEDS: DILTIAZEM 90 MG TABLET PO SCH ×3 (05:24→21:33)
[2019-06-07] MEDS: DIVALPROEX 500 MG TABLET PO SCH ×3 (05:25→21:34)
[2019-06-07] MEDS: BUDESONIDE 0.25 MG/2 ML NEB RESP TX SCH ×2 (06:02→19:50)
[2019-06-07] MEDS: ALBUTEROL/IPRATROPIUM 3 ML NEB RESP TX SCH ×3 (06:02→19:50)
[2019-06-07 06:35] LABS: Basophils # 0.1 10*3/uL (0.0-0.2); Basophils % 0.2 % (0.0-0.8); Hematocrit 36.3 VOL% (42.0-52.0); Hemoglobin 11.6 GM/DL (14.0-18.0); Immature Granulocytes % 1.3 %; Immature Granulocytes Absolute 0.35 #; Lymphocytes # 1.3 10*3/uL (1.4-4.0); Lymphocytes % 4.6 % (21.2-54.2); Mean Corpuscular Volume 90.5 FL (87-102); Mean Platelet Volume 12.5 FL (9.6-12.0); Monocytes % 4.8 % (1.7-12.7); Neutrophils % 89.1 % (38.7-73.9); Platelet Count 478 T/CUMM (130-400); Red Blood Count 4.01 MC/CUMM (3.8-5.5); Red Cell Distribution Width 16.1 % (9.3-17.3)
[2019-06-07 07:05] LABS: Calcium 10.3 MG/DL (8.5-10.1)
[2019-06-07 07:16] LABS: Band Neutrophils 1 % (0-10); Lymphocytes 4 % (20-55); Platelet Estimate Normal; Polychromasia Few; Segmented Neutrophils 94 % (50-85); Total Cells Counted 100
[2019-06-07] MEDS: LORATADINE 10 MG TABLET PO SCH (10:33)
[2019-06-07] MEDS: GABAPENTIN 100 MG CAPSULE PO SCH ×3 (10:33→21:33)
[2019-06-07] MEDS: DOCUSATE SODIUM 100 MG/10 ML UDCUP PO SCH ×2 (10:33→21:32)
[2019-06-07] MEDS: LANSOPRAZOLE ODT 30 MG TABLET NG SCH (10:34)
[2019-06-07] MEDS: FOLIC ACID 1 MG TABLET PO SCH (10:34)
[2019-06-07] MEDS: HydrOXYzine PAMOATE 25 MG CAPSULE PO SCH ×3 (10:34→18:26)
[2019-06-07] MEDS: THIAMINE 100 MG TABLET PO SCH (10:34)
[2019-06-07] MEDS: ALLOPURINOL 100 MG TABLET PO SCH ×2 (10:35→21:34)
[2019-06-07] MEDS: traMADol 50 MG TABLET PO SCH ×3 (10:35→21:33)
[2019-06-07] MEDS: POTASSIUM CHLORIDE 20 MEQ/15 ML UDCUP PO SCH (10:35)
[2019-06-07] MEDS: levETIRAcetam LIQUID 100 MG/ML 30 ML/BOTTLE PO SCH ×2 (10:35→21:35)
[2019-06-07] MEDS: ASPIRIN EC 81 MG TABLET PO SCH (10:36)
[2019-06-07] MEDS: FUROSEMIDE 40 MG/4 ML VIAL IV SCH ×2 (10:36→18:22)
[2019-06-07] MEDS: BISOPROLOL 5 MG TABLET PO SCH ×2 (10:46→21:48)
[2019-06-07] MEDS: AMITRIPTYLINE 25 MG TABLET PO SCH (21:33)
[2019-06-07] MEDS: ATORVASTATIN 20 MG TABLET PO SCH (21:34)
[2019-06-07] MEDS: SERTRALINE 25 MG TABLET PO SCH (21:34)
[2019-06-07] MEDS: QUEtiapine 25 MG TABLET PEG SCH (21:34)
[2019-06-08] MEDS: methylPREDNISolone SOD SUC 40 MG/1 ML VIAL IV SCH ×3 (02:35→22:06)
[2019-06-08] MEDS: FLUCONAZOLE INJ 100 MG in IV BAG 1 EACH IV SCH (04:18)
[2019-06-08] MEDS: VANCOMYCIN INJ 1,000 MG in SODIUM CHLORIDE 0.9% 250 ML IV SCH ×2 (04:57→17:45)
[2019-06-08] MEDS: DILTIAZEM 90 MG TABLET PO SCH ×3 (05:47→22:07)
[2019-06-08] MEDS: DIVALPROEX 500 MG TABLET PO SCH ×3 (05:47→22:08)
[2019-06-08] MEDS: ALBUTEROL/IPRATROPIUM 3 ML NEB RESP TX SCH ×3 (07:40→19:24)
[2019-06-08] MEDS: BUDESONIDE 0.25 MG/2 ML NEB RESP TX SCH ×2 (07:40→19:24)
[2019-06-08] MEDS: DOCUSATE SODIUM 100 MG/10 ML UDCUP PO SCH ×2 (10:27→22:08)
[2019-06-08] MEDS: FUROSEMIDE 40 MG/4 ML VIAL IV SCH ×2 (10:28→17:37)
[2019-06-08] MEDS: POTASSIUM CHLORIDE 20 MEQ/15 ML UDCUP PO SCH (10:28)
[2019-06-08] MEDS: HydrOXYzine PAMOATE 25 MG CAPSULE PO SCH ×3 (10:29→19:29)
[2019-06-08] MEDS: ASPIRIN EC 81 MG TABLET PO SCH (10:29)
[2019-06-08] MEDS: LANSOPRAZOLE ODT 30 MG TABLET NG SCH (10:30)
[2019-06-08] MEDS: traMADol 50 MG TABLET PO SCH ×3 (10:30→22:08)
[2019-06-08] MEDS: BISOPROLOL 5 MG TABLET PO SCH ×2 (10:30→22:08)
[2019-06-08] MEDS: THIAMINE 100 MG TABLET PO SCH (10:30)
[2019-06-08] MEDS: GABAPENTIN 100 MG CAPSULE PO SCH ×3 (10:30→22:09)
[2019-06-08] MEDS: LORATADINE 10 MG TABLET PO SCH (10:31)
[2019-06-08] MEDS: FOLIC ACID 1 MG TABLET PO SCH (10:31)
[2019-06-08] MEDS: ALLOPURINOL 100 MG TABLET PO SCH ×2 (10:31→22:08)
[2019-06-08] MEDS: levETIRAcetam LIQUID 100 MG/ML 30 ML/BOTTLE PO SCH ×2 (10:33→22:09)
[2019-06-08] MEDS: AMITRIPTYLINE 25 MG TABLET PO SCH (22:07)
[2019-06-08] MEDS: QUEtiapine 25 MG TABLET PEG SCH (22:08)
[2019-06-08] MEDS: ATORVASTATIN 20 MG TABLET PO SCH (22:08)
[2019-06-08] MEDS: SERTRALINE 25 MG TABLET PO SCH (22:09)
[2019-06-09] MEDS: methylPREDNISolone SOD SUC 40 MG/1 ML VIAL IV SCH ×3 (04:01→22:40)
[2019-06-09] MEDS: FLUCONAZOLE INJ 100 MG in IV BAG 1 EACH IV SCH (04:04)
[2019-06-09] MEDS: DILTIAZEM 90 MG TABLET PO SCH ×3 (05:33→22:42)
[2019-06-09] MEDS: DIVALPROEX 500 MG TABLET PO SCH ×3 (05:34→22:43)
[2019-06-09 07:01] LABS: Basophils # 0.1 10*3/uL (0.0-0.2); Basophils % 0.2 % (0.0-0.8); Hematocrit 38.9 VOL% (42.0-52.0); Hemoglobin 12.6 GM/DL (14.0-18.0); Immature Granulocytes Absolute 0.66 #; Mean Corpuscular HGB Conc 32.4 GM/DL (32-36); Mean Corpuscular Volume 91.1 FL (87-102); Mean Platelet Volume 11.6 FL (9.6-12.0); Monocytes % 2.4 % (1.7-12.7); Neutrophils % 92.4 % (38.7-73.9); Platelet Count 489 T/CUMM (130-400); Red Blood Count 4.27 MC/CUMM (3.8-5.5); Red Cell Distribution Width 16.4 % (9.3-17.3); White Blood Count 33.2 T/CUMM (4-12)
[2019-06-09 07:20] LABS: Calcium 10.3 MG/DL (8.5-10.1); Osmolality,Calculated 284.1 MOS/KG (273-304)
[2019-06-09 07:24] LABS: Band Neutrophils 1 % (0-10); Hypochromasia 1+; Lymphocytes 6 % (20-55); Platelet Estimate Adequate; Segmented Neutrophils 91 % (50-85); Total Cells Counted 100
[2019-06-09] MEDS: ALBUTEROL/IPRATROPIUM 3 ML NEB RESP TX SCH ×3 (08:20→19:33)
[2019-06-09] MEDS: BUDESONIDE 0.25 MG/2 ML NEB RESP TX SCH ×2 (08:20→19:33)
[2019-06-09] MEDS: POTASSIUM CHLORIDE 20 MEQ/15 ML UDCUP PO SCH (08:42)
[2019-06-09] MEDS: levETIRAcetam LIQUID 100 MG/ML 30 ML/BOTTLE PO SCH ×2 (08:42→22:41)
[2019-06-09] MEDS: GABAPENTIN 100 MG CAPSULE PO SCH ×3 (08:43→22:41)
[2019-06-09] MEDS: LANSOPRAZOLE ODT 30 MG TABLET NG SCH (08:43)
[2019-06-09] MEDS: DOCUSATE SODIUM 100 MG/10 ML UDCUP PO SCH ×2 (08:43→22:41)
[2019-06-09] MEDS: ASPIRIN EC 81 MG TABLET PO SCH (08:43)
[2019-06-09] MEDS: BISOPROLOL 5 MG TABLET PO SCH ×2 (08:43→22:42)
[2019-06-09] MEDS: ALLOPURINOL 100 MG TABLET PO SCH ×2 (08:43→22:42)
[2019-06-09] MEDS: THIAMINE 100 MG TABLET PO SCH (08:44)
[2019-06-09] MEDS: FOLIC ACID 1 MG TABLET PO SCH (08:44)
[2019-06-09] MEDS: traMADol 50 MG TABLET PO SCH ×3 (08:44→22:41)
[2019-06-09] MEDS: FUROSEMIDE 40 MG/4 ML VIAL IV SCH ×2 (08:46→15:19)
[2019-06-09] MEDS: LORATADINE 10 MG TABLET PO SCH (08:46)
[2019-06-09] MEDS: HydrOXYzine PAMOATE 25 MG CAPSULE PO SCH ×3 (08:52→17:18)
[2019-06-09] MEDS ORDERED: METOPROLOL TARTRATE 5 MG/5 ML VIAL IV ONE ×2 (12:40→12:44)
[2019-06-09] MEDS ORDERED: DIGOXIN 0.25 MG TABLET PO ONE (12:57)
[2019-06-09] MEDS: ATORVASTATIN 20 MG TABLET PO SCH (22:41)
[2019-06-09] MEDS: AMITRIPTYLINE 25 MG TABLET PO SCH (22:41)
[2019-06-09] MEDS: QUEtiapine 25 MG TABLET PEG SCH (22:41)
[2019-06-09] MEDS: SERTRALINE 25 MG TABLET PO SCH (22:42)
[2019-06-10] MEDS: methylPREDNISolone SOD SUC 40 MG/1 ML VIAL IV SCH ×2 (03:39→09:38)
[2019-06-10] MEDS: DILTIAZEM 90 MG TABLET PO SCH ×3 (05:53→20:59)
[2019-06-10] MEDS: FLUCONAZOLE INJ 100 MG in IV BAG 1 EACH IV SCH (05:53)
[2019-06-10] MEDS: DIVALPROEX 500 MG TABLET PO SCH ×3 (05:53→20:59)
[2019-06-10] MEDS: BUDESONIDE 0.25 MG/2 ML NEB RESP TX SCH ×2 (07:14→20:45)
[2019-06-10] MEDS: ALBUTEROL/IPRATROPIUM 3 ML NEB RESP TX SCH ×3 (07:14→20:45)
[2019-06-10 08:18] LABS: Basophils # 0.1 10*3/uL (0.0-0.2); Basophils % 0.3 % (0.0-0.8); Hematocrit 39.6 VOL% (42.0-52.0); Hemoglobin 12.8 GM/DL (14.0-18.0); Immature Granulocytes % 2.6 %; Lymphocytes # 1.7 10*3/uL (1.4-4.0); Lymphocytes % 4.4 % (21.2-54.2); Mean Corpuscular HGB Conc 32.3 GM/DL (32-36); Mean Corpuscular Volume 89.8 FL (87-102); Monocytes % 3.8 % (1.7-12.7); Neutrophils % 88.9 % (38.7-73.9); Platelet Count 466 T/CUMM (130-400); Red Blood Count 4.41 MC/CUMM (3.8-5.5); Red Cell Distribution Width 16.4 % (9.3-17.3); White Blood Count 38.5 T/CUMM (4-12)
[2019-06-10 08:45] LABS: Band Neutrophils 15 % (0-10); Lymphocytes 7 % (20-55); Platelet Estimate Normal; Segmented Neutrophils 71 % (50-85); Total Cells Counted 100
[2019-06-10 08:46] LABS: Anisocytosis 2+; Burr Cells Few; Poikilocytosis 1+; Smudge Cells Few
[2019-06-10] MEDS: FUROSEMIDE 40 MG/4 ML VIAL IV SCH ×2 (09:38→15:45)
[2019-06-10 09:54] LABS: INR 1.1; PT Patient Result 11.8 SECS (9.6-12.2)
[2019-06-10] MEDS: BISOPROLOL 5 MG TABLET PO SCH ×2 (11:15→20:55)
[2019-06-10] MEDS: FOLIC ACID 1 MG TABLET PO SCH (11:15)
[2019-06-10] MEDS: HydrOXYzine PAMOATE 25 MG CAPSULE PO SCH ×3 (11:15→17:40)
[2019-06-10] MEDS: LORATADINE 10 MG TABLET PO SCH (11:15)
[2019-06-10] MEDS: ALLOPURINOL 100 MG TABLET PO SCH ×2 (11:15→20:55)
[2019-06-10] MEDS: DOCUSATE SODIUM 100 MG/10 ML UDCUP PO SCH ×2 (11:15→21:06)
[2019-06-10] MEDS: THIAMINE 100 MG TABLET PO SCH (11:15)
[2019-06-10] MEDS: LANSOPRAZOLE ODT 30 MG TABLET NG SCH (11:15)
[2019-06-10] MEDS: POTASSIUM CHLORIDE 20 MEQ/15 ML UDCUP PO SCH (11:15)
[2019-06-10] MEDS: GABAPENTIN 100 MG CAPSULE PO SCH ×3 (11:15→20:55)
[2019-06-10] MEDS: traMADol 50 MG TABLET PO SCH ×3 (11:15→20:55)
[2019-06-10] MEDS: levETIRAcetam LIQUID 100 MG/ML 30 ML/BOTTLE PO SCH ×2 (13:55→20:56)
[2019-06-10] MEDS: ASPIRIN EC 81 MG TABLET PO SCH (13:55)
[2019-06-10] MEDS: DIGOXIN 0.125 MG TABLET PO SCH (13:56)
[2019-06-10] MEDS: QUEtiapine 25 MG TABLET PEG SCH (20:55)
[2019-06-10] MEDS: ATORVASTATIN 20 MG TABLET PO SCH (20:55)
[2019-06-10] MEDS: AMITRIPTYLINE 25 MG TABLET PO SCH (20:55)
[2019-06-10] MEDS: SERTRALINE 25 MG TABLET PO SCH (20:55)
[2019-06-11] MEDS: FLUCONAZOLE INJ 100 MG in IV BAG 1 EACH IV SCH (04:58)
[2019-06-11] MEDS: DILTIAZEM 90 MG TABLET PO SCH (05:02)
[2019-06-11] MEDS: DIVALPROEX 500 MG TABLET PO SCH ×3 (05:03→21:25)
[2019-06-11 07:50] LABS: Basophils # 0.1 10*3/uL (0.0-0.2); Basophils % 0.3 % (0.0-0.8); Hematocrit 43.4 VOL% (42.0-52.0); Hemoglobin 13.8 GM/DL (14.0-18.0); Immature Granulocytes % 1.6 %; Immature Granulocytes Absolute 0.64 #; Lymphocytes # 2.2 10*3/uL (1.4-4.0); Lymphocytes % 5.4 % (21.2-54.2); Mean Corpuscular HGB Conc 31.8 GM/DL (32-36); Mean Corpuscular Volume 91.6 FL (87-102); Mean Platelet Volume 12.1 FL (9.6-12.0); Monocytes % 8.7 % (1.7-12.7); NRBC # 0.03 10*3/uL; Platelet Count 449 T/CUMM (130-400); Red Blood Count 4.74 MC/CUMM (3.8-5.5); Red Cell Distribution Width 16.6 % (9.3-17.3); White Blood Count 39.9 T/CUMM (4-12)
[2019-06-11] MEDS: ALBUTEROL/IPRATROPIUM 3 ML NEB RESP TX SCH ×3 (07:50→19:52)
[2019-06-11] MEDS: BUDESONIDE 0.25 MG/2 ML NEB RESP TX SCH ×2 (07:50→19:52)
[2019-06-11 07:59] LABS: Calcium 10.5 MG/DL (8.5-10.1); Osmolality,Calculated 293.2 MOS/KG (273-304)
[2019-06-11 08:15] LABS: Band Neutrophils 5 % (0-10); Hypochromasia 1+; Lymphocytes 5 % (20-55); Microcytosis 1+; Segmented Neutrophils 81 % (50-85); Total Cells Counted 100
[2019-06-11 08:16] LABS: Acanthocytes Few; Ovalocytes Slight; Target Cells Slight
[2019-06-11 08:17] LABS: Platelet Estimate Increased
[2019-06-11] MEDS: methylPREDNISolone SOD SUC 40 MG/1 ML VIAL IV SCH ×2 (08:42→20:37)
[2019-06-11] MEDS: FUROSEMIDE 40 MG/4 ML VIAL IV SCH ×2 (08:42→16:15)
[2019-06-11] MEDS: FOLIC ACID 1 MG TABLET PO SCH (08:43)
[2019-06-11] MEDS: ALLOPURINOL 100 MG TABLET PO SCH ×2 (08:43→20:35)
[2019-06-11] MEDS: THIAMINE 100 MG TABLET PO SCH (08:43)
[2019-06-11] MEDS: LORATADINE 10 MG TABLET PO SCH (08:43)
[2019-06-11] MEDS: POTASSIUM CHLORIDE 20 MEQ/15 ML UDCUP PO SCH (08:44)
[2019-06-11] MEDS: BISOPROLOL 5 MG TABLET PO SCH ×2 (08:44→20:36)
[2019-06-11] MEDS: CLOPIDOGREL 75 MG TABLET PO SCH (08:44)
[2019-06-11] MEDS: traMADol 50 MG TABLET PO SCH ×3 (08:44→20:36)
[2019-06-11] MEDS: GABAPENTIN 100 MG CAPSULE PO SCH ×3 (08:44→20:35)
[2019-06-11] MEDS: ASPIRIN EC 81 MG TABLET PO SCH (08:44)
[2019-06-11] MEDS: LANSOPRAZOLE ODT 30 MG TABLET NG SCH (08:45)
[2019-06-11] MEDS: HydrOXYzine PAMOATE 25 MG CAPSULE PO SCH ×3 (08:46→16:15)
[2019-06-11] MEDS: levETIRAcetam LIQUID 100 MG/ML 30 ML/BOTTLE PO SCH ×2 (08:46→21:25)
[2019-06-11] MEDS: DOCUSATE SODIUM 100 MG/10 ML UDCUP PO SCH ×2 (08:46→20:35)
[2019-06-11] MEDS: dilTIAZem Drip 125 MG/125 ML PREMIX IV SCH ×2 (10:17→23:41)
[2019-06-11 11:44] LABS: ABG Base Excess 9.6 MMOL/L (-2.5-2.5); ABG HCO3 33.4 MMOL/L (20-26); ABG Oxygen Saturation 97.5 % (95-100); ABG PCO2 48.1 MM HG (35-48); ABG PH 7.469 (7.35-7.45); ABG PO2 99.8 MM HG (80-95); ABG TCO2 30.4 MMOL/L (23-27)
[2019-06-11 11:49] LABS: Amorphous Crystals,Urine Few /HPF (Few); Apearance,Urine Slightly Hazy (Clear); Bacteria,Urine Occasional /HPF (Few); Bilirubin,Urine Negative (Negative); Blood, Urine Negative (Negative); Glucose,Urine (UA) Negative (Negative); Hyaline Casts,Urine 12 /LPF (0-3); Ketones,Urine Negative (Negative); Mucus,Urine Occasional /LPF (Occasional); Nitrite,Urine Negative (Negative); Protein,Urine Negative; RBC,Urine <1 /HPF (0-4); Urine Color Yellow (Yellow); Urine Specific Gravity 1.014 (1.001-1.035); Urine Urobilinogen < 2.0 EU/DL (0.2-1.0); WBC,Urine <1 /HPF (0-6)
[2019-06-11] MEDS: DIGOXIN 0.125 MG TABLET PO SCH (11:55)
[2019-06-11] MEDS: MEROPENEM 500 MG in SODIUM CHLORIDE 0.9% 100 ML IV SCH ×2 (13:56→21:25)
[2019-06-11] MEDS ORDERED: DIGOXIN 0.5 MG/2 ML AMP IV ONE (14:14)
[2019-06-11] MEDS ORDERED: methylPREDNISolone SOD SUC 40 MG/1 ML VIAL IV ONE (14:32)
[2019-06-11 15:53] LABS: ABG Base Excess 9.1 MMOL/L (-2.5-2.5); ABG HCO3 32.8 MMOL/L (20-26); ABG Oxygen Saturation 96.2 % (95-100); ABG PCO2 54.8 MM HG (35-48); ABG PH 7.421 (7.35-7.45); ABG PO2 90.5 MM HG (80-95); ABG TCO2 31.1 MMOL/L (23-27)
[2019-06-11] MEDS: MORPHINE 4 MG/1 ML VIAL IV SCH ×3 (18:30→22:22)
[2019-06-11] MEDS: SERTRALINE 25 MG TABLET PO SCH (20:35)
[2019-06-11] MEDS: ATORVASTATIN 20 MG TABLET PO SCH (20:36)
[2019-06-11] MEDS: QUEtiapine 25 MG TABLET PEG SCH (20:36)
[2019-06-11] MEDS: AMITRIPTYLINE 25 MG TABLET PO SCH (20:36)
[2019-06-12] MEDS: SODIUM CHLORIDE 0.9% 1,000 ML IV SCH ×2 (00:23→13:35)
[2019-06-12] MEDS: MORPHINE 4 MG/1 ML VIAL IV SCH ×12 (00:58→22:53)
[2019-06-12 03:19] LABS: ABG Base Excess 9.3 MMOL/L (-2.5-2.5); ABG HCO3 33.1 MMOL/L (20-26); ABG Oxygen Saturation 99.6 % (95-100); ABG PCO2 53.7 MM HG (35-48); ABG PH 7.429 (7.35-7.45); ABG TCO2 31.4 MMOL/L (23-27); Allen Test Positive; Pt O2 Delivery Device BIPAP
[2019-06-12 04:19] LABS: Basophils # 0.1 10*3/uL (0.0-0.2); Basophils % 0.2 % (0.0-0.8); Hematocrit 36.4 VOL% (42.0-52.0); Hemoglobin 11.8 GM/DL (14.0-18.0); Immature Granulocytes Absolute 0.39 #; Lymphocytes # 0.6 10*3/uL (1.4-4.0); Lymphocytes % 1.6 % (21.2-54.2); Mean Corpuscular HGB Conc 32.4 GM/DL (32-36); Mean Platelet Volume 12.3 FL (9.6-12.0); Monocytes % 3.2 % (1.7-12.7); Platelet Count 358 T/CUMM (130-400); Red Cell Distribution Width 16.4 % (9.3-17.3); White Blood Count 37.9 T/CUMM (4-12)
[2019-06-12 04:43] LABS: Albumin 2.7 G/DL (3.4-5.0); Bilirubin,Total 0.4 MG/DL (0.2-1.0); Calcium 9.8 MG/DL (8.5-10.1); Osmolality,Calculated 304.5 MOS/KG (273-304); Total Protein 6.5 G/DL (6.4-8.3)
[2019-06-12 05:03] LABS: Acanthocytes 2+; Anisocytosis Slight; Band Neutrophils 6 % (0-10); Lymphocytes 1 % (20-55); Macrocytosis Slight; Segmented Neutrophils 91 % (50-85); Total Cells Counted 100
[2019-06-12] MEDS: MEROPENEM 500 MG in SODIUM CHLORIDE 0.9% 100 ML IV SCH ×3 (05:39→21:29)
[2019-06-12] MEDS: DIVALPROEX 500 MG TABLET PO SCH ×3 (05:40→21:02)
[2019-06-12] MEDS: BUDESONIDE 0.25 MG/2 ML NEB RESP TX SCH ×2 (06:47→19:24)
[2019-06-12] MEDS: ALBUTEROL/IPRATROPIUM 3 ML NEB RESP TX SCH ×3 (06:47→19:24)
[2019-06-12] MEDS: methylPREDNISolone SOD SUC 40 MG/1 ML VIAL IV SCH ×2 (08:47→21:02)
[2019-06-12] MEDS: THIAMINE 100 MG TABLET PO SCH (08:49)
[2019-06-12] MEDS: ASPIRIN EC 81 MG TABLET PO SCH (08:49)
[2019-06-12] MEDS: LORATADINE 10 MG TABLET PO SCH (08:49)
[2019-06-12] MEDS: GABAPENTIN 100 MG CAPSULE PO SCH ×3 (08:49→21:03)
[2019-06-12] MEDS: traMADol 50 MG TABLET PO SCH ×3 (08:49→21:03)
[2019-06-12] MEDS: HydrOXYzine PAMOATE 25 MG CAPSULE PO SCH ×2 (08:49→21:03)
[2019-06-12] MEDS: BISOPROLOL 5 MG TABLET PO SCH ×2 (08:49→21:03)
[2019-06-12] MEDS: DOCUSATE SODIUM 100 MG/10 ML UDCUP PO SCH ×2 (08:50→21:02)
[2019-06-12] MEDS: POTASSIUM CHLORIDE 20 MEQ/15 ML UDCUP PO SCH (08:51)
[2019-06-12] MEDS: LANSOPRAZOLE ODT 30 MG TABLET NG SCH (08:51)
[2019-06-12] MEDS: levETIRAcetam LIQUID 100 MG/ML 30 ML/BOTTLE PO SCH ×2 (08:51→21:04)
[2019-06-12] MEDS ORDERED: FUROSEMIDE 40 MG/4 ML VIAL IV SCH (09:00)
[2019-06-12] MEDS ORDERED: TAPENTADOL PO SCH (09:00)
[2019-06-12] MEDS: dilTIAZem Drip 125 MG/125 ML PREMIX IV SCH (09:52)
[2019-06-12] MEDS: DILTIAZEM 60 MG TABLET PO SCH ×3 (12:40→21:02)
[2019-06-12] MEDS: SERTRALINE 25 MG TABLET PO SCH (21:03)
[2019-06-12] MEDS: QUEtiapine 25 MG TABLET PEG SCH (21:03)
[2019-06-12] MEDS: AMITRIPTYLINE 25 MG TABLET PO SCH (21:03)
[2019-06-13] MEDS: MORPHINE 4 MG/1 ML VIAL IV SCH ×8 (00:15→14:47)
[2019-06-13] MEDS: dilTIAZem Drip 125 MG/125 ML PREMIX IV SCH ×2 (02:43→12:15)
[2019-06-13 02:59] LABS: ABG Base Excess 9.8 MMOL/L (-2.5-2.5); ABG HCO3 33.5 MMOL/L (20-26); ABG Oxygen Saturation 99.1 % (95-100); ABG PCO2 49.1 MM HG (35-48); ABG PH 7.462 (7.35-7.45); ABG TCO2 31.5 MMOL/L (23-27); Allen Test Positive; Pt O2 Delivery Device BIPAP
[2019-06-13] MEDS: SODIUM CHLORIDE 0.9% 1,000 ML IV SCH ×3 (04:37→15:46)
[2019-06-13] MEDS: MEROPENEM 500 MG in SODIUM CHLORIDE 0.9% 100 ML IV SCH ×2 (05:27→13:37)
[2019-06-13] MEDS: DIVALPROEX 500 MG TABLET PO SCH ×2 (06:08→13:37)
[2019-06-13 06:17] LABS: Basophils # 0.1 10*3/uL (0.0-0.2); Basophils % 0.2 % (0.0-0.8); Hematocrit 33.8 VOL% (42.0-52.0); Hemoglobin 10.7 GM/DL (14.0-18.0); Immature Granulocytes % 1.3 %; Immature Granulocytes Absolute 0.52 #; Lymphocytes # 0.6 10*3/uL (1.4-4.0); Lymphocytes % 1.5 % (21.2-54.2); Mean Corpuscular HGB Conc 31.7 GM/DL (32-36); Mean Corpuscular Volume 94.7 FL (87-102); Mean Platelet Volume 12.6 FL (9.6-12.0); Monocytes % 3.4 % (1.7-12.7); Neutrophils % 93.6 % (38.7-73.9); Platelet Count 296 T/CUMM (130-400); Red Blood Count 3.57 MC/CUMM (3.8-5.5); Red Cell Distribution Width 16.3 % (9.3-17.3); White Blood Count 38.9 T/CUMM (4-12)
[2019-06-13 06:41] LABS: Osmolality,Calculated 304.8 MOS/KG (273-304)
[2019-06-13 07:27] LABS: Band Neutrophils 2 % (0-10); Hypochromasia 1+; Lymphocytes 1 % (20-55); Myelocytes 1 %; Segmented Neutrophils 93 % (50-85); Total Cells Counted 100
[2019-06-13 07:28] LABS: Acanthocytes Few; Microcytosis 1+; Ovalocytes Slight; Platelet Estimate Normal
[2019-06-13] MEDS: BUDESONIDE 0.25 MG/2 ML NEB RESP TX SCH (07:38)
[2019-06-13] MEDS: ALBUTEROL/IPRATROPIUM 3 ML NEB RESP TX SCH ×2 (07:38→12:17)
[2019-06-13] MEDS ORDERED: FUROSEMIDE 20 MG/2 ML VIAL IV SCH (09:00)
[2019-06-13] MEDS: LANSOPRAZOLE ODT 30 MG TABLET NG SCH (09:46)
[2019-06-13] MEDS: ASPIRIN EC 81 MG TABLET PO SCH (09:46)
[2019-06-13] MEDS: DOCUSATE SODIUM 100 MG/10 ML UDCUP PO SCH (09:46)
[2019-06-13] MEDS: BISOPROLOL 5 MG TABLET PO SCH (09:46)
[2019-06-13] MEDS: DILTIAZEM 60 MG TABLET PO SCH (09:46)
[2019-06-13] MEDS: levETIRAcetam LIQUID 100 MG/ML 30 ML/BOTTLE PO SCH (09:47)
[2019-06-13] MEDS: HydrOXYzine PAMOATE 25 MG CAPSULE PO SCH (09:47)
[2019-06-13] MEDS: GABAPENTIN 100 MG CAPSULE PO SCH ×2 (09:48→15:25)
[2019-06-13] MEDS: traMADol 50 MG TABLET PO SCH ×2 (09:48→15:24)
[2019-06-13] MEDS: methylPREDNISolone SOD SUC 40 MG/1 ML VIAL IV SCH (09:48)
[2019-06-13] MEDS ORDERED: DILTIAZEM 30 MG TABLET PO ONE (11:50)
[2019-06-13] MEDS: DILTIAZEM 90 MG TABLET PO SCH ×2 (12:32→15:24)
[2019-06-13 15:25] VITALS: BP 114/83
[2019-06-13] MEDS ORDERED: APIXABAN 5 MG TABLET PO SCH (21:00)
== END 2019-06-13 16:10 | disposition hospice, inpatient (51) | DRG 177 ==
LOC: EDUNIT# → EDBD → N.ED 16:22 → SUPCPDRO 17:50 → N.EDINP 17:50 → N.CC 20:22 → N.TELES 05-23 12:55 → N.CC 06-11 11:14
PROVIDERS: ADMIT Internal Medicine; ATTEND Internal Medicine
PROC: IRBXLYN (2019-06-10 10:35)